=== PATIENT | female | born 1985 | race Caucasian/White ===

== ENCOUNTER 2016-11-16 16:09 | Outpatient (CLI) | payer MEDICAID ==
[2016-11-16 16:58] LABS: APPEARANCE,URINE CLEAR; BILIRUBIN,URINE NEGATIVE (NEGATIVE); GLUCOSE, URINE NEGATIVE (NEGATIVE); KETONES,URINE NEGATIVE (NEGATIVE); LEUKOCYTE ESTERASE,URINE NEGATIVE (NEGATIVE); NITRITE,URINE NEGATIVE (NEGATIVE); PROTEIN,URINE NEGATIVE (NEGATIVE); URINE SPECIFIC GRAVITY 1.004; UROBILINOGEN,URINE NEGATIVE mg/dL (<2.0)
[2016-11-16 17:00] LABS: AMNISURE (ROM) NEGATIVE (NEGATIVE)
[2016-11-16 17:14] LABS: URINE BARBITURATES SCREEN NEGATIVE; URINE METHADONE SCREEN NEGATIVE; URINE OPIATES LOW NEGATIVE; URINE PHENCYCLIDINE SCREEN NEGATIVE
--- NOTE | 2016-11-16 18:00 | L&D Flow Sheet ---
LD Flowsheet Datetime Report Generated by CPN: 11/16/2016 18:00 Datetime: 11/16/2016 17:52 Vital Signs NBP Sys/Andree/Mean (mmHg): 102 (QS system process) : 64 (QS system process) : 76 (QS system process) Pulse: 82 (QS system process) LaborFlag: Antepartum (QS system process) Datetime: 11/16/2016 17:30 Uterine Activity Monitor Mode: External; Palpation (Brooklyn Baidy, RN) Frequency (min): irritability (Brooklyn Baidy, RN) Assessment A Monitor Mode: External US (Brooklyn Baidy, RN) FHR Baseline Rate : 135 (Brooklyn Baidy, RN) Variability: Moderate 6-25 bpm (Brooklyn Baidy, RN) Accelerations: 15X15 (Brooklyn Baidy, RN) Decelerations: None (Brooklyn Baidy, RN) Datetime: 11/16/2016 17:22 Vital Signs NBP Sys/Andree/Mean (mmHg): 126 (QS system process) : 83 (QS system process) : 100 (QS system process) Pulse: 80 (QS system process) LaborFlag: Antepartum (QS system process) Datetime: 11/16/2016 17:06 Communication Communication Comments: Dr Mckeon at bedside reviewing POC (Brooklyn Baidy, RN) Datetime: 11/16/2016 17:00 Uterine Activity Monitor Mode: External; Palpation (Brooklyn Baidy, RN) Frequency (min): irritability (Brooklyn Baidy, RN) Assessment A Monitor Mode: External US (Brooklyn Baidy, RN) FHR Baseline Rate : 135 (Brooklyn Baidy, RN) Variability: Moderate 6-25 bpm (Brooklyn Baidy, RN) Accelerations: 15X15 (Brooklyn Baidy, RN) Decelerations: None (Brooklyn Baidy, RN) Datetime: 11/16/2016 16:57 Frequency (min): irregular (Brooklyn Baidy, RN) Pain Pain Scale: 2 (Brooklyn Baidy, RN) Pain Presence: Intermittent (Brooklyn Baidy, RN) Pain Type: Cramping; Contraction (Brooklyn Baidy, RN) Pain Location: Abdomen (Brooklyn Baidy, RN) Pain Goal: 1 (Brooklyn Baidy, RN) Vaginal Exam Vaginal Bleeding: Small (Brooklyn Baidy, RN) Maternal Assessment Level of Consciousness: Fully Conscious (Brooklyn Baidy, RN) DTR's/Clonus: DTRs 2+; No Clonus (Brooklyn Baidy, RN) Headache: Denies (Brooklyn Baidy, RN) Breath Sounds, Left: Clear and Equal (Brooklyn Baidy, RN) Breath Sounds, Right: Clear and Equal (Boroklyn Baidy, RN) Nausea/Vomiting: Present (Brooklyn Baidy, RN) RUQ Epigastric Pain: Denies (Brooklyn Baidy, RN) Patient Care Patient Position/Activity: Semi-Fowlers (Brooklyn Baidy, RN) Teaching Instructional Method: Verbal; Patient Instructed; Verbalized Understanding (Brooklyn Salinas RN) Plan of Care: Plan of Care Discussed (Brooklny Salinas RN) Unit Routine: [place] to Room; Call Maurice; Bed; Monitoring (LAUREN Fraga LaborFlag: Antepartum (QS system process) Datetime: 11/16/2016 16:53 Maternal Assessment Level of Consciousness: Fully Conscious (Brooklyn Salinas RN) DTR's/Clonus: DTRs 2+; No Clonus (Brooklyn Salinas RN) Headache: Denies (Brooklyn Salinas RN) Breath Sounds, Left: Clear and Equal (Brooklyn Baidy, RN) Breath Sounds, Right: Clear and Equal (Brooklyn Salinas, RN) Nausea/Vomiting: Denies (Brooklyn Salinas, RN) RUQ Epigastric Pain: Denies (Brooklyn Rita, RN) Datetime: 11/16/2016 16:52 Vital Signs NBP Sys/Andree/Mean (mmHg): 107 (QS system process) : 59 (QS system process) : 76 (QS system process) Pulse: 93 (QS system process) LaborFlag: Antepartum (QS system process) Datetime: 11/16/2016 16:46 I/O Interventions: Up to BR (Brooklyn Salinas RN)
[2016-11-16] MEDS ORDERED: PROMETHAZINE HCL INJ 25 MG/1 ML VIAL ONE (18:01)
[2016-11-16] MEDS ORDERED: PROMETHAZINE HCL INJ 25 MG/1 ML VIAL IV ONE (18:06)
[2016-11-16] MEDS ORDERED: RINGERS SOLUTION,LACTATED 1,000 ML IV PRN (18:16)
[2016-11-16 18:53] LABS: ABSOLUTE EOSINOPHILS # (AUTO) 0.1 10^3/uL (0.0-0.6); ABSOLUTE LYMPHOCYTES (AUTO) 2.9 10^3/uL (0.5-4.7); ABSOLUTE MONOCYTES (AUTO) 1.1 10^3/uL (0.1-1.4); ABSOLUTE NEUT (AUTO) 10.1 10^3/uL (1.7-8.2); BASOPHILS % (AUTO) 0.2 % (0-2); EOSINOPHILS % (AUTO) 0.5 % (0-6); HEMATOCRIT 35.4 % (36.0-47.0); HEMOGLOBIN 11.8 g/dL (12.0-15.5); LYMPHOCYTES % (AUTO) 20.2 % (13-45); MEAN CORPUSCULAR HEMOGLOBIN 29.8 pg (27.0-33.4); MEAN CORPUSCULAR HGB CONC 33.4 g/dL (32.0-36.0); MEAN CORPUSCULAR VOLUME 89 fl (80-97); MONOCYTES % (AUTO) 7.7 % (3-13); RED BLOOD COUNT 3.97 10^6/uL (3.72-5.28); RED CELL DISTRIBUTION WIDTH 14.9 % (11.5-14.0); SEGMENTED NEUTROPHILS % (AUTO) 71.4 % (42-78); WHITE BLOOD COUNT 14.2 10^3/uL (4.0-10.5)
[2016-11-16 19:11] LABS: ALANINE AMINOTRANSFERASE 31 U/L (9-52); ALKALINE PHOSPHATASE 90 U/L (38-126); ANION GAP 13 (5-19); ASPARTATE AMINO TRANSFERASE 23 U/L (14-36); BILIRUBIN,TOTAL 0.9 mg/dL (0.2-1.3); BLOOD UREA NITROGEN 8 mg/dL (7-20); CALCIUM 10.2 mg/dL (8.4-10.2); CARBON DIOXIDE 25 mmol/L (22-30); CHLORIDE 100 mmol/L (98-107); CREATININE RESULT 0.61 mg/dL (0.52-1.25); GLUCOSE 86 mg/dL (75-110); POTASSIUM 4.3 mmol/L (3.6-5.0); TOTAL PROTEIN 7.3 g/dL (6.3-8.2)
[2016-11-16 19:38] LABS: THYROID STIMULATING HORMONE 1.79 uIU/mL (0.47-4.68)
--- NOTE | 2016-11-16 20:00 | L&D Flow Sheet ---
LD Flowsheet Datetime Report Generated by CPN: 11/16/2016 20:00 Datetime: 11/16/2016 19:52 NBP Sys/Andree/Mean (mmHg): 113 (QS system process) : 71 (QS system process) : 87 (QS system process) Pulse: 86 (QS system process) LaborFlag: Antepartum (QS system process) Datetime: 11/16/2016 19:47 Procedures: Bedside Ultrasound Done (Annotations: vertex, MVP at least 2.5cm) (Jeana Kossmann, RN) Datetime: 11/16/2016 19:45 Communication Comments: Dr. Mckeon at bedside discussing POC. Discussed plans to check sugars and thryoid again in the office. Thyroid level is slighty lower. at bedside doing ultrasound. (Jeana Grey, RN) Datetime: 11/16/2016 19:38 I/O Interventions: Up to BR (Jeana Grey, SARAH) Communication Comments: Dr. Mckeon at bedside and discussed POC. (Jeana Matutebrandon, RN) Datetime: 11/16/2016 19:22 NBP Sys/Andree/Mean (mmHg): 104 (QS system process) : 66 (QS system process) : 81 (QS system process) Pulse: 102 (QS system process) LaborFlag: Antepartum (QS system process) Datetime: 11/16/2016 19:21 Communication Comments: Report given to Tonja Page RN, care relinquished. (Brooklyn Salinas RN) Datetime: 11/16/2016 19:00 Monitor Mode: External; Palpation (Brooklyn Salinas RN) Frequency (min): 1.5-4 (Brooklyn Salinas RN) Quality: Mild (Brooklyn Salinas RN) Duration (sec): 40-80 (Brooklyn Salinas RN) Duration Criteria: Less than Two 120 Second Contractions (Brooklyn Salinas RN) Pattern: Normal: <= 5 Contractions in 10 Minutes (Brooklyn Salinas RN) Resting Tone (Palpate): Relaxed (Brooklyn Salinas RN) Monitor Mode: External US (Brooklyn Baidy, RN) FHR Baseline Rate : 135 (Brooklyn Salinas, RN) Variability: Moderate 6-25 bpm (Brooklyn Salinas, RN) Accelerations: 15X15 (Brooklyn Salinas, RN) Decelerations: None (Brooklyn Salinas, SARAH) Analgesics/Sedatives: Phenergan (mg) @ 12.5 (Brooklyn Salinas, RN) Datetime: 11/16/2016 18:58 Monitor Interventions for UA: [place] Adjusted (Brooklyn Salinas, SARAH) Datetime: 11/16/2016 18:51 IV/Blood Work: IV Started; IV Bolus Started (Brooklyn Salinas, SARAH) Patient Care Comments: 18g in left arm, stat lock applied (Brooklyn Salinas, RN) Datetime: 11/16/2016 18:37 Exam by: Dr Mckeon (Brooklyn Salinas RN) Vaginal Exam Comments: closed thick and high (Brooklyn Salinas, RN) Datetime: 11/16/2016 18:36 Communication Comments: Dr Mckeon at bedside to perform SVE. (Brooklyn Salinas, SARAH) Datetime: 11/16/2016 18:30 Monitor Mode: External; Palpation (Brooklyn Salinas RN) Frequency (min): 1.5-3 (Brooklyn Salinas RN) Quality: Mild (Brooklyn Salinas RN) Duration (sec): 40-60 (Brooklyn Salinas RN) Duration Criteria: Less than Two 120 Second Contractions (Brooklyn Salinas RN) Pattern: Normal: <= 5 Contractions in 10 Minutes (Brooklyn Salinas RN) Resting Tone (Palpate): Relaxed (Brooklyn Salinas RN) Monitor Mode: External US (Brooklyn Salinas RN) FHR Baseline Rate : 135 (Brooklyn Salinas RN) Variability: Moderate 6-25 bpm (Brooklyn Salinas RN) Accelerations: 15X15 (Brooklyn Salinas RN) Decelerations: None (Brooklyn Salinas RN) Strip Reviewed by: Dr Mckeon (Brooklyn Salinas RN) Communication: RN Reviewed Strip (Brooklyn Salinas RN) Communication Comments: Dr Mckeon notified of pt ctx (Brooklyn Salinas RN) Datetime: 11/16/2016 18:11 Patient Care Comments: pt sitting straight up in bed picking up mht. (Brooklyn Salinas RN) Datetime: 11/16/2016 18:03 Patient Care Comments: Dr Mckeon notified of pt request for something for nausea. Orders received for LR 1 liter bolus and 12.5mg phenergan IV. (Brooklyn Salinas RN) Datetime: 11/16/2016 18:00 Monitor Mode: External; Palpation (Brooklyn Salinas RN) Frequency (min): 1.5-4 (Brooklyn Salinas RN) Quality: Mild (Brooklyn Salinas RN) Duration (sec): 40-90 (Brooklyn Salinas RN) Duration Criteria: Less than Two 120 Second Contractions (Brooklyn Salinas RN) Pattern: Normal: <= 5 Contractions in 10 Minutes (Brooklyn Salinas RN) Resting Tone (Palpate): Relaxed (Brooklyn Salinas RN) Monitor Mode: External US (Brooklyn Salinas RN) FHR Baseline Rate : 135 (Brooklyn Salinas RN) Variability: Moderate 6-25 bpm (Brooklyn Salinas RN) Accelerations: 15X15 (Brooklyn Salinas, SARAH) Decelerations: None (Brooklyn Salinas RN)
--- NOTE | 2016-11-17 04:46 | L&D Current Admission ---
Current Admit Datetime Report Generated by CPN: 11/17/2016 04:45 ADMISSION INFORMATION Chief Complaint: Contractions; Suspected Rupture of Membranes; Nausea; Vomiting (11/16/2016 16:57:Brooklyn Salinas RN)
--- NOTE | 2016-11-17 04:46 | L&D Flow Sheet ---
LD Flowsheet Datetime Report Generated by CPN: 11/17/2016 04:45 Datetime: 11/16/2016 20:40 Additional Nursing Comments: Patient discharged in stable condition. (Jeana Giovanibrandon, RN) Datetime: 11/16/2016 20:37 Patient Care Comments: IV access removed, tip intact, pressure held, bandage applied. (Jeana Elizabethann, RN) Datetime: 11/16/2016 20:30 Monitor Mode: External; Palpation (Jeana Grey RN) Frequency (min): uterine irritability (Jeana Grey RN) Resting Tone (Palpate): Relaxed (Jeana Grey RN) Monitor Mode: External US (Jeana Grey RN) FHR Baseline Rate : 135 (Jeana Grey RN) Variability: Minimal - Undetectable to <=5 bpm (Jeana Grey RN) Decelerations: None (Jeana Grey RN) Communication Comments: Orders received to discharge home from Dr. Mckeon. (Jeana Grey RN) Datetime: 11/16/2016 20:22 NBP Sys/Andree/Mean (mmHg): 99 (QS system process) : 59 (QS system process) : 74 (QS system process) Pulse: 77 (QS system process) Respirations: 18 (Jeana Grey RN) Pain Scale: 0 (Jeana Grey RN) Pain Presence: None/Denies (Jeana Grey RN) Pain Type: N/A (Jeana Grey RN) LaborFlag: Antepartum (QS system process) Datetime: 11/16/2016 20:01 Monitor Mode: External; Palpation (Jeana Grey RN) Frequency (min): rare with uterine irritability (Jeana Grey RN) Quality: Mild (Jeana Grey RN) Duration (sec): 30-50 (Jeana Grey RN) Resting Tone (Palpate): Relaxed (Jeana Grey RN) Monitor Mode: External US (Jeana Grey RN) FHR Baseline Rate : 140 (Jeana Grey RN) Variability: Minimal - Undetectable to <=5 bpm (Jeana Grey RN) Decelerations: None (Jeana Grey RN) Datetime: 11/16/2016 19:52 NBP Sys/Andree/Mean (mmHg): 113 (QS system process) : 71 (QS system process) : 87 (QS system process) Pulse: 86 (QS system process) LaborFlag: Antepartum (QS system process) Datetime: 11/16/2016 19:47 Procedures: Bedside Ultrasound Done (Annotations: vertex, MVP at least 2.5cm) (Jeana Matutebrandon, RN) Datetime: 11/16/2016 19:45 Communication Comments: Dr. Mckeon at bedside discussing POC. Discussed plans to check sugars and thryoid again in the office. Thyroid level is slighty lower. at bedside doing ultrasound. (Jeana Matilda, RN) Datetime: 11/16/2016 19:38 I/O Interventions: Up to BR (Jeana Grey RN) Communication Comments: Dr. Mckeon at bedside and discussed POC. (Jeana Grey RN) Datetime: 11/16/2016 19:30 Monitor Mode: External; Palpation (Jeana Grey RN) Frequency (min): uterine irritability (Jeana Grey RN) Resting Tone (Palpate): Relaxed (Jeana Grey RN) Monitor Mode: External US (Jeana Grey RN) FHR Baseline Rate : 140 (Jeana Grey RN) Variability: Moderate 6-25 bpm (Jeana Grey RN) Accelerations: 15X15 (Jeana Grey RN) Decelerations: None (Jeana Grey RN) Datetime: 11/16/2016 19:22 NBP Sys/Andree/Mean (mmHg): 104 (QS system process) : 66 (QS system process) : 81 (QS system process) Pulse: 102 (QS system process) LaborFlag: Antepartum (QS system process) Datetime: 11/16/2016 19:21 Communication Comments: Report given to J Kaylee RN, care relinquished. (Brooklyn Baidy, RN) Datetime: 11/16/2016 19:10 Communication Comments: Report from RN Baidy, care assummed. (Jeana Giovanismann, RN) Datetime: 11/16/2016 19:00 Monitor Mode: External; Palpation (Brooklyn Salinas, RN) Frequency (min): 1.5-4 (Brooklyn Salinas, RN) Quality: Mild (Brooklyn Rita, RN) Duration (sec): 40-80 (Brooklyn Salinas RN) Duration Criteria: Less than Two 120 Second Contractions (Brooklyn Salinas RN) Pattern: Normal: <= 5 Contractions in 10 Minutes (Brooklyn Salinas RN) Resting Tone (Palpate): Relaxed (Brooklyn Salinas RN) Monitor Mode: External US (Brooklyn Salinas RN) FHR Baseline Rate : 135 (Brooklyn Salinas RN) Variability: Moderate 6-25 bpm (Brooklyn Salinas RN) Accelerations: 15X15 (Brooklyn Salinas RN) Decelerations: None (Brooklyn Salinas RN) Analgesics/Sedatives: Phenergan (mg) @ 12.5 (Brooklyn Salinas RN) Datetime: 11/16/2016 18:58 Monitor Interventions for UA: [place] Adjusted (Brooklyn Salinas RN) Datetime: 11/16/2016 18:51 IV/Blood Work: IV Started; IV Bolus Started (Brooklyn Salinas RN) Patient Care Comments: 18g in left arm, stat lock applied (Brooklyn Baidy, RN) Datetime: 11/16/2016 18:37 Exam by: Dr Mckeon (Brooklyn Baidy, RN) Vaginal Exam Comments: closed thick and high (Brooklyn Baidy, RN) Datetime: 11/16/2016 18:36 Communication Comments: Dr Mckeon at bedside to perform SVE. (Brooklyn Baidy, RN) Datetime: 11/16/2016 18:30 Monitor Mode: External; Palpation (Brooklyn Baidy, RN) Frequency (min): 1.5-3 (Brooklyn Salinas RN) Quality: Mild (Brooklyn Salinas RN) Duration (sec): 40-60 (Brooklyn Salinas RN) Duration Criteria: Less than Two 120 Second Contractions (Brooklyn Salinas RN) Pattern: Normal: <= 5 Contractions in 10 Minutes (Brooklyn Salinas RN) Resting Tone (Palpate): Relaxed (Brooklyn Salinas RN) Monitor Mode: External US (Brooklyn Salinas RN) FHR Baseline Rate : 135 (Brooklyn Salinas RN) Variability: Moderate 6-25 bpm (Brooklyn Salinas RN) Accelerations: 15X15 (Brooklyn Salinas RN) Decelerations: None (Brooklyn Salinas RN) Strip Reviewed by: Dr Mckeon (Brooklyn Salinas RN) Communication: RN Reviewed Strip (Brooklyn Salinas RN) Communication Comments: Dr Mckeon notified of pt ctx (Brooklyn Salinas RN) Datetime: 11/16/2016 18:11 Patient Care Comments: pt sitting straight up in bed picking up mht. (Brooklyn Salinas RN) Datetime: 11/16/2016 18:03 Patient Care Comments: Dr Mckeon notified of pt request for something for nausea. Orders received for LR 1 liter bolus and 12.5mg phenergan IV. (Brooklyn Salinas RN) Datetime: 11/16/2016 18:00 Monitor Mode: External; Palpation (Brooklyn Salinas, RN) Frequency (min): 1.5-4 (Brooklyn Salinas, RN) Quality: Mild (Brooklyn Salinas, RN) Duration (sec): 40-90 (Brooklyn Salinas, RN) Duration Criteria: Less than Two 120 Second Contractions (Brooklyn Salinas, RN) Pattern: Normal: <= 5 Contractions in 10 Minutes (Brooklyn Salinas, RN) Resting Tone (Palpate): Relaxed (Brooklyn Salinas, RN) Monitor Mode: External US (Brooklyn Salinas, RN) FHR Baseline Rate : 135 (Brooklyn Salinas, RN) Variability: Moderate 6-25 bpm (Brooklyn Salinas, RN) Accelerations: 15X15 (Brooklyn Salinas, RN) Decelerations: None (Brooklyn Salinas, RN) Datetime: 11/16/2016 17:52 NBP Sys/Andree/Mean (mmHg): 102 (QS system process) : 64 (QS system process) : 76 (QS system process) Pulse: 82 (QS system process) LaborFlag: Antepartum (QS system process) Datetime: 11/16/2016 17:30 Monitor Mode: External; Palpation (Brooklyn Baidy, RN) Frequency (min): irritability (Brooklyn Baidy, RN) Monitor Mode: External US (Brooklyn Baidy, RN) FHR Baseline Rate : 135 (Brooklyn Baidy, RN) Variability: Moderate 6-25 bpm (Brooklyn Baidy, RN) Accelerations: 15X15 (Brooklyn Baidy, RN) Decelerations: None (Brooklyn Baidy, RN) Datetime: 11/16/2016 17:22 NBP Sys/Andree/Mean (mmHg): 126 (QS system process) : 83 (QS system process) : 100 (QS system process) Pulse: 80 (QS system process) LaborFlag: Antepartum (QS system process) Datetime: 11/16/2016 17:06 Communication Comments: Dr Mckeon at bedside reviewing POC (Brooklyn Baidy, RN) Datetime: 11/16/2016 17:00 Monitor Mode: External; Palpation (Brooklyn Baidy, RN) Frequency (min): irritability (Brooklyn Baidy, RN) Monitor Mode: External US (Brooklyn Baidy, RN) FHR Baseline Rate : 135 (Brooklyn Baidy, RN) Variability: Moderate 6-25 bpm (Brooklyn Baidy, RN) Accelerations: 15X15 (Brooklyn Baidy, RN) Decelerations: None (Brooklyn Baidy, RN) Datetime: 11/16/2016 16:57 Frequency (min): irregular (Brooklyn Salinas RN) Pain Scale: 2 (Brooklyn Salinas RN) Pain Presence: Intermittent (Brooklyn Salinas RN) Pain Type: Cramping; Contraction (Brooklyn Salinas RN) Pain Location: Abdomen (Brooklyn Salinas RN) Pain Goal: 1 (Brooklyn Salinas RN) Vaginal Bleeding: Small (Brooklyn Salinas RN) Level of Consciousness: Fully Conscious (Brooklyn Salinas RN) DTR's/Clonus: DTRs 2+; No Clonus (Brooklyn Salinas RN) Headache: Denies (Brooklyn Salinas RN) Breath Sounds, Left: Clear and Equal (Brooklyn Salinas RN) Breath Sounds, Right: Clear and Equal (Brooklyn Salinas RN) Nausea/Vomiting: Present (Brooklyn Salinas RN) RUQ Epigastric Pain: Denies (Brooklyn Salinas RN) Patient Position/Activity: Semi-Fowlers (Brooklyn Salinas RN) Instructional Method: Verbal; Patient Instructed; Verbalized Understanding (Brooklyn Salinas RN) Plan of Care: Plan of Care Discussed (Brooklyn Salinas RN) Unit Routine: [place] to Room; Call Maurice; Bed; Monitoring (Brooklyn Salinas RN) LaborFlag: Antepartum (QS system process) Datetime: 11/16/2016 16:53 Level of Consciousness: Fully Conscious (Brooklyn Salinas RN) DTR's/Clonus: DTRs 2+; No Clonus (Brooklyn Salinas RN) Headache: Denies (Brooklyn Salinas RN) Breath Sounds, Left: Clear and Equal (Brooklyn Salinas RN) Breath Sounds, Right: Clear and Equal (Brooklyn Salinas RN) Nausea/Vomiting: Denies (Brooklyn Salinas RN) RUQ Epigastric Pain: Denies (Brooklyn Salinas RN) Datetime: 11/16/2016 16:52 NBP Sys/Andree/Mean (mmHg): 107 (QS system process) : 59 (QS system process) : 76 (QS system process) Pulse: 93 (QS system process) LaborFlag: Antepartum (QS system process) Datetime: 11/16/2016 16:46 I/O Interventions: Up to BR (Brooklyn Salinas RN)
--- NOTE | 2016-11-17 04:46 | Antepartum Discharge Summary ---
Antepartum DC Datetime Report Generated by CPN: 11/17/2016 04:45 DIET/ACTIVITY/RESTRICTIONS Diet: Regular (11/16/2016 20:40:Jeana Grey, SARAH) Activity: Normal Activity (11/16/2016 20:40:Jeana Grey, RN) TEACHING/INSTRUCTIONS/REFERRALS Instructions Given To: patient and (11/16/2016 20:40:Jeana Grey RN) Instructions Understood: Patient Verbalized Understanding; Support Person Verbalized Understanding (11/16/2016 20:40:Jeana Grey RN) Referrals: None (11/16/2016 20:40:Jeana Grey RN) Educational Materials- Other: Kick counts, early labor signs, gasteroenteritis, BRAT diet reviewed. Dehydration paperwork provided. (11/16/2016 20:40:Jeana Grey RN) DISCHARGE INFORMATION Discharged AMA: No (11/16/2016 20:40:Jeana Grey RN) Discharge Date/Time: 11/16/2016 20:40 (11/16/2016 20:40:Jeana Grey RN) Discharged To: Home (11/16/2016 20:40:Jeana Grey RN) Discharge Provider Name: Dr. Mckeon (11/16/2016 20:40:Jeana Grey RN) Accompanied By: (11/16/2016 20:40:Jeana Grey RN) Discharge Method: Wheelchair (11/16/2016 20:40:Jeana Grey RN) Condition: Stable (11/16/2016 20:40:Jeana Grey RN) FOLLOW UP INFORMATION Follow Up With: [facility] (11/16/2016 20:40:Jeana Grey RN) Follow Up On: As Scheduled (11/16/2016 20:40:Jeana Grey RN) Comments: Prescription provided to patient for Phenergan. Patient to followup in office. (11/16/2016 20:40:Jeana Grey RN)
--- NOTE | 2016-11-17 04:46 | L&D Admission Assessment ---
LD ADM ASMT Datetime Report Generated by CPN: 11/17/2016 04:45 PATIENT ASSESSMENT Assessment Type: Triage (11/16/2016 16:57:Brooklyn Baidy, RN) Assessment Type: Triage (11/16/2016 16:53:Brooklyn Baidy, RN) WEIGHT Weight (lb): 180 (11/17/2016 01:53:QS system process) Weight (lb): 180 (11/16/2016 18:27:QS system process) Weight (lb): 180 (11/16/2016 17:31:QS system process) Weight (lb): 180 (11/16/2016 17:29:QS system process) Weight (lb): 180 (11/16/2016 17:28:QS system process) Weight (lb): 180 (11/16/2016 16:34:QS system process) Weight (kg): 81.8 (11/17/2016 01:53:QS system process) Weight (kg): 81.8 (11/16/2016 18:27:QS system process) Weight (kg): 81.8 (11/16/2016 17:31:QS system process) Weight (kg): 81.8 (11/16/2016 17:29:QS system process) Weight (kg): 81.8 (11/16/2016 17:28:QS system process) Weight (kg): 81.8 (11/16/2016 16:34:QS system process) BMI: 32.9 (11/17/2016 01:53:QS system process) BMI: 32.9 (11/16/2016 18:27:QS system process) BMI: 32.9 (11/16/2016 17:31:QS system process) BMI: 32.9 (11/16/2016 17:29:QS system process) BMI: 32.9 (11/16/2016 17:28:QS system process) BMI: 32.9 (11/16/2016 16:34:QS system process) PAIN Pain Scale: 0 (11/16/2016 20:22:Jeana Grey RN) Pain Scale: 2 (11/16/2016 16:57:Brooklyn Salinas RN) Pain Presence: None/Denies (11/16/2016 20:22:Jeana Grey RN) Pain Presence: Intermittent (11/16/2016 16:57:Brooklyn Salinas RN) Pain Type: N/A (11/16/2016 20:22:Jeana Grey RN) Pain Type: Cramping; Contraction (11/16/2016 16:57:Brooklyn Salinas RN) Pain Location: Abdomen (11/16/2016 16:57:Brooklyn Salinas RN) Pain Goal: 1 (11/16/2016 16:57:Brooklyn Salinas RN) Pain Related to Contraction: Unsure (11/16/2016 16:57:Brooklyn Salinas RN) CONTRACTIONS Frequency (min): uterine irritability (11/16/2016 20:30:Jeana Grey RN) Frequency (min): rare with uterine irritability (11/16/2016 20:01:Jeana Grey RN) Frequency (min): uterine irritability (11/16/2016 19:30:Jeana Grey RN) Frequency (min): 1.5-4 (11/16/2016 19:00:Brooklyn Salinas RN) Frequency (min): 1.5-3 (11/16/2016 18:30:Brooklyn Salinas RN) Frequency (min): 1.5-4 (11/16/2016 18:00:Brooklyn Salinas RN) Frequency (min): irritability (11/16/2016 17:30:Brooklyn Salinas RN) Frequency (min): irritability (11/16/2016 17:00:Brooklyn Salinas RN) Frequency (min): irregular (11/16/2016 16:57:Brooklyn Salinas RN) Duration (sec): 30-50 (11/16/2016 20:01:Jeana Grey RN) Duration (sec): 40-80 (11/16/2016 19:00:Brooklyn Salinas RN) Duration (sec): 40-60 (11/16/2016 18:30:Brooklyn Salinas RN) Duration (sec): 40-90 (11/16/2016 18:00:Brooklyn Salinas RN) Quality: Mild (11/16/2016 20:01:Jeana Grey RN) Quality: Mild (11/16/2016 19:00:Brooklyn Salinas RN) Quality: Mild (11/16/2016 18:30:Brooklyn Salinas RN) Quality: Mild (11/16/2016 18:00:Brooklyn Salinas RN) Pattern: Normal: <= 5 Contractions in 10 Minutes (11/16/2016 19:00:Brooklyn Salinas RN) Pattern: Normal: <= 5 Contractions in 10 Minutes (11/16/2016 18:30:Brooklyn Salinas RN) Pattern: Normal: <= 5 Contractions in 10 Minutes (11/16/2016 18:00:Brooklyn Salinas RN) Resting Tone Kismet: Relaxed (11/16/2016 20:30:Jeana Grey RN) Resting Tone [place]ism[place]: Relaxed (11/16/2016 20:01:Jeana Grey RN) Resting Tone [place]ism[place]: Relaxed (11/16/2016 19:30:Jeaan Grey RN) Resting Tone Kismet: Relaxed (11/16/2016 19:00:Brooklyn Salinas RN) Resting Tone Kismet: Relaxed (11/16/2016 18:30:Brooklyn Salinas RN) Resting Tone Kismet: Relaxed (11/16/2016 18:00:Brooklyn Salinas RN) NEURO Level of Consciousness: Fully Conscious (11/16/2016 16:57:Brooklyn Salinas RN) Level of Consciousness: Fully Conscious (11/16/2016 16:53:Brooklyn Salinas RN) DTR's/Clonus: DTRs 2+; No Clonus (11/16/2016 16:57:Brooklyn Salinas RN) DTR's/Clonus: DTRs 2+; No Clonus (11/16/2016 16:53:Brooklyn Salinas RN) Headache: Denies (11/16/2016 16:57:Brooklyn Salinas RN) Headache: Denies (11/16/2016 16:53:Brooklyn Salinas RN) Dizziness: Yes (11/16/2016 16:57:Brooklyn Salinas RN) Dizziness: No (11/16/2016 16:53:Brooklyn Salinas RN) Blurred Vision: No (11/16/2016 16:57:Brooklyn Salinas RN) Blurred Vision: No (11/16/2016 16:53:Brooklyn Salinas RN) Extremity Numbness/Tingling : None (11/16/2016 16:57:Brooklyn Salinas RN) Extremity Numbness/Tingling : None (11/16/2016 16:53:Brooklyn Salinas RN) Extremity Movement: Full Range of Motion (11/16/2016 16:57:Brooklyn Salinas RN) Extremity Movement: Full Range of Motion (11/16/2016 16:53:Brooklyn Salinas RN) CARDIOVASCULAR Nailbeds: [place] (11/16/2016 16:57:Brooklyn Salinas RN) Nailbeds: [place] (11/16/2016 16:53:Brooklyn Salinas RN) Capillary Refill: Less than 3 Seconds (11/16/2016 16:57:Brooklyn Salinas RN) Capillary Refill: Less than 3 Seconds (11/16/2016 16:53:Brooklyn Salinas RN) Facial Edema: None (11/16/2016 16:57:Brooklyn Salinas RN) Facial Edema: None (11/16/2016 16:53:Brooklyn Salinas RN) Xavi's Sign Left Leg: Negative (11/16/2016 16:57:Brooklyn Salinas RN) Xavi's Sign Left Leg: Negative (11/16/2016 16:53:Brooklyn Salinas RN) Xavi's Sign Right Leg: Negative (11/16/2016 16:57:Brooklyn Salinas RN) Xavi's Sign Right Leg: Negative (11/16/2016 16:53:Brooklyn Salinas RN) RESPIRATORY Respiratory Effort: Unlabored; Regular Rhythm; Equal Expansion (11/16/2016 16:57:Brooklyn Salinas RN) Respiratory Effort: Unlabored; Regular Rhythm; Equal Expansion (11/16/2016 16:53:Brooklyn Salinas RN) Breath Sounds, Left: Clear and Equal (11/16/2016 16:57:Brooklyn Salinas RN) Breath Sounds, Left: Clear and Equal (11/16/2016 16:53:Brooklyn Salinas RN) Breath Sounds, Right: Clear and Equal (11/16/2016 16:57:Brooklyn Salinas RN) Breath Sounds, Right: Clear and Equal (11/16/2016 16:53:Brooklyn Salinas RN) Cough Productivity: None (11/16/2016 16:57:Brooklyn Salinas RN) Cough Productivity: None (11/16/2016 16:53:Brooklyn Salinas RN) GASTROINTESTINAL Nausea/Vomiting: Present (11/16/2016 16:57:Brooklyn Salinas RN) Nausea/Vomiting: Denies (11/16/2016 16:53:Brooklyn Salinas RN) Bowel Sounds: Normoactive; All Quadrants (11/16/2016 16:57:Brooklyn Salinas RN) Bowel Sounds: Normoactive; All Quadrants (11/16/2016 16:53:Brooklyn Salinas RN) RUQ Epigastric Pain: Denies (11/16/2016 16:57:Brooklyn Salinas RN) RUQ Epigastric Pain: Denies (11/16/2016 16:53:Brooklyn Salinas RN) Bowel Patterns: Diarrhea (Annotations: x3 days) (11/16/2016 16:57:Brooklyn Salinas RN) Hemorrhoids: None (11/16/2016 16:57:Brooklyn Salinas RN) Diet Type: Regular diet (11/16/2016 16:57:Brooklyn Salinas RN) GENITOURINARY Bladder: Nondistended (11/16/2016 16:57:Brooklyn Salinas RN) Bladder: Nondistended (11/16/2016 16:53:Brooklyn Salinas RN) Frequency of Urination: No (11/16/2016 16:57:Brooklyn Salinas RN) Frequency of Urination: No (11/16/2016 16:53:Brooklyn Salinas RN) Urination Burning: No (11/16/2016 16:57:Brooklyn Salinas RN) Urination Burning: No (11/16/2016 16:53:Brooklyn Salinas RN) CVA Tenderness: No (11/16/2016 16:57:Brooklyn Salinas RN) CVA Tenderness: No (11/16/2016 16:53:Brooklyn Salinas RN) Vaginal Bleeding: None (11/16/2016 16:57:Brooklyn Salinas RN) Vaginal Bleeding: None (11/16/2016 16:53:Brooklyn Salinas RN) Vaginal Discharge Color: N/A (11/16/2016 16:57:Brooklyn Salinas RN) Vaginal Discharge Color: N/A (11/16/2016 16:53:Brooklyn Salinas RN) INTEGUMENTARY Skin Color: Normal for Race (11/16/2016 16:57:Brooklyn Salinas RN) Skin Color: Normal for Race (11/16/2016 16:53:Brooklyn Salinas RN) Skin Temperature: Warm (11/16/2016 16:57:Brooklyn Salinas RN) Skin Temperature: Warm (11/16/2016 16:53:Brooklyn Salinas RN) Skin Moisture: Dry (11/16/2016 16:57:Brooklyn Salinas RN) Skin Moisture: Dry (11/16/2016 16:53:Brooklyn Salinas RN) SONJA SKIN ASSESSMENT Sonja Scale Sensory Perception: No Impairment- Responds to verbal commands. Has no sensory deficit which would limit ability to feel or voice pain or discomfort (11/16/2016 16:57:Brooklyn Salinas RN) Sonja Scale Sensory Perception: No Impairment- Responds to verbal commands. Has no sensory deficit which would limit ability to feel or voice pain or discomfort (11/16/2016 16:53:Brooklyn Salinas RN) Sonja Scale Moisture: Rarely Moist- Skin is usually dry. Linen only requires changing at routine intervals (11/16/2016 16:57:Brooklyn Salinas RN) Sonja Scale Moisture: Rarely Moist- Skin is usually dry. Linen only requires changing at routine intervals (11/16/2016 16:53:Brooklyn Salinas RN) Sonja Scale Activity: Walks Frequently- Walks outside the room at least twice a day and inside room at least every 2 hours during the day. (11/16/2016 16:57:Brooklyn Salinas RN) Sonja Scale Activity: Walks Frequently- Walks outside the room at least twice a day and inside room at least every 2 hours during the day. (11/16/2016 16:53:Brooklyn Salinas RN) Sonja Scale Mobility: No Limitations- Makes major and frequent changes in position without assistance (11/16/2016 16:57:Brooklyn Salinas RN) Sonja Scale Mobility: No Limitations- Makes major and frequent changes in position without assistance (11/16/2016 16:53:Brooklyn Salinas RN) Sonja Scale Nutrition: Excellent- Eats most of every meal. Never refuses a meal. Usually eats a total of 4 or more servings of meat and dairy products. Occasionally eats between meals. Does not require supplementation (11/16/2016 16:57:Brooklyn Salinas RN) Sonja Scale Nutrition: Excellent- Eats most of every meal. Never refuses a meal. Usually eats a total of 4 or more servings of meat and dairy products. Occasionally eats between meals. Does not require supplementation (11/16/2016 16:53:Brooklyn Salinas RN) Sonja Scale Friction and Shear: No Apparent Problem- Moves in bed and in chair independently and has sufficient muscle strength to lift up completely during move. Maintains good position in bed or chair at all times (11/16/2016 16:57:Brooklyn Salinas RN) Sonja Scale Friction and Shear: No Apparent Problem- Moves in bed and in chair independently and has sufficient muscle strength to lift up completely during move. Maintains good position in bed or chair at all times (11/16/2016 16:53:Brooklyn Salinas RN) Sonja Scale Total: 23 (11/16/2016 16:57:QS system process) Sonja Scale Total: 23 (11/16/2016 16:53:QS system process) Sonja Scale Risk: No Risk of Pressure Ulcer Noted at this Time (11/16/2016 16:57:QS system process) Sonja Scale Risk: No Risk of Pressure Ulcer Noted at this Time (11/16/2016 16:53:QS system process) SUPPORT Family Support: Significant Other supportive, at bedside frequently (11/16/2016 16:57:Brooklyn Salinas, RN) Emotional State: Calm/Relaxed (11/16/2016 16:57:Brooklyn Baidy, RN) SAFETY Call Maurice Within Reach: Yes (11/16/2016 16:57:Brooklyn Salinas RN) Call Maurice Within Reach: Yes (11/16/2016 16:53:Brooklyn Salinas RN) Side Rails Up: Yes (11/16/2016 16:57:Brooklyn Salinas RN) Side Rails Up: Yes (11/16/2016 16:53:Brooklyn Salinas RN) Bed Wheels Locked: Yes (11/16/2016 16:57:Brooklyn Salinas RN) Bed Wheels Locked: Yes (11/16/2016 16:53:Brooklyn Salinas RN) Arm Bands Present: Yes (11/16/2016 16:57:Brooklyn Salinas RN) Arm Bands Present: Yes (11/16/2016 16:53:Brooklyn Salinas RN) FALL SCREEN Fall Risk History of Falling: (0) No (11/16/2016 16:57:Brooklyn Salinas RN) Fall Risk History of Falling: (0) No (11/16/2016 16:53:Brooklyn Salinas RN) Fall Risk Secondary Diagnosis: (0) No (11/16/2016 16:57:Brooklyn Salinas RN) Fall Risk Secondary Diagnosis: (0) No (11/16/2016 16:53:Brooklyn Salinas RN) Fall Risk Ambulatory Aid: (0) None/Bedrest/Wheelchair/Nurse Assist (11/16/2016 16:57:Brooklyn Salinas RN) Fall Risk Ambulatory Aid: (0) None/Bedrest/Wheelchair/Nurse Assist (11/16/2016 16:53:Brooklyn Salinas RN) Fall Risk IV Therapy: (0) No (11/16/2016 16:57:Brooklyn Salinas RN) Fall Risk IV Therapy: (0) No (11/16/2016 16:53:Brooklyn Salinas RN) Fall Risk Gait: (0) Normal/Bedrest/Immobile (11/16/2016 16:57:Brooklyn Salinas RN) Fall Risk Gait: (0) Normal/Bedrest/Immobile (11/16/2016 16:53:Brooklyn Salinas RN) Fall Risk Mental Status: (0) Oriented to Own Ability (11/16/2016 16:57:Brooklyn Salinas RN) Fall Risk Mental Status: (0) Oriented to Own Ability (11/16/2016 16:53:Brooklyn Salinas RN) Fall Risk Score: 0 (11/16/2016 16:57:QS system process) Fall Risk Score: 0 (11/16/2016 16:53:QS system process) Fall Risk Score Definition: No Risk: No action required (11/16/2016 16:57:QS system process) Fall Risk Score Definition: No Risk: No action required (11/16/2016 16:53:QS system process) BABY A FHR Baseline Rate (bpm) Baby A: 135 (11/16/2016 20:30:Jeana Grey RN) FHR Baseline Rate (bpm) Baby A: 140 (11/16/2016 20:01:Jeana Grey RN) FHR Baseline Rate (bpm) Baby A: 140 (11/16/2016 19:30:Jeana Grey RN) FHR Baseline Rate (bpm) Baby A: 135 (11/16/2016 19:00:Brooklyn Salinas RN) FHR Baseline Rate (bpm) Baby A: 135 (11/16/2016 18:30:Brooklyn Salinas RN) FHR Baseline Rate (bpm) Baby A: 135 (11/16/2016 18:00:Brooklyn Salinas RN) FHR Baseline Rate (bpm) Baby A: 135 (11/16/2016 17:30:Brooklyn Salinas RN) FHR Baseline Rate (bpm) Baby A: 135 (11/16/2016 17:00:Brooklyn Salinas RN) Variability Baby A: Minimal - Undetectable to <=5 bpm (11/16/2016 20:30:Jeana Grey RN) Variability Baby A: Minimal - Undetectable to <=5 bpm (11/16/2016 20:01:Jeana Grey RN) Variability Baby A: Moderate 6-25 bpm (11/16/2016 19:30:Jeana Grey RN) Variability Baby A: Moderate 6-25 bpm (11/16/2016 19:00:Brooklyn Salinas RN) Variability Baby A: Moderate 6-25 bpm (11/16/2016 18:30:Brooklyn Salinas RN) Variability Baby A: Moderate 6-25 bpm (11/16/2016 18:00:Brooklyn Salinas RN) Variability Baby A: Moderate 6-25 bpm (11/16/2016 17:30:Brooklyn Salinas RN) Variability Baby A: Moderate 6-25 bpm (11/16/2016 17:00:Brooklyn Salinas RN) Accelerations Baby A: 15X15 (11/16/2016 19:30:Jeana Grey RN) Accelerations Baby A: 15X15 (11/16/2016 19:00:Brooklyn Salinas RN) Accelerations Baby A: 15X15 (11/16/2016 18:30:Brooklyn Salinas RN) Accelerations Baby A: 15X15 (11/16/2016 18:00:Brooklyn Salinas RN) Accelerations Baby A: 15X15 (11/16/2016 17:30:Brooklyn Salinas RN) Accelerations Baby A: 15X15 (11/16/2016 17:00:Brooklyn Salinas RN) Decelerations Baby A: None (11/16/2016 20:30:Jeana Grey RN) Decelerations Baby A: None (11/16/2016 20:01:Jeana Grey RN) Decelerations Baby A: None (11/16/2016 19:30:Jeana Grey RN) Decelerations Baby A: None (11/16/2016 19:00:Brooklyn Salinas RN) Decelerations Baby A: None (11/16/2016 18:30:Brooklyn Salinas RN) Decelerations Baby A: None (11/16/2016 18:00:Brooklyn Salinas RN) Decelerations Baby A: None (11/16/2016 17:30:Brooklyn Salinas RN) Decelerations Baby A: None (11/16/2016 17:00:Brooklyn Salinas RN) ADDITIONAL COMMENTS Comments: Assessment completed, and in agreeance with previous shifts assessment. Patient states that she is feeling better. Continuing to receive IV hydration through LAC. VSS, NAD. Will continue to closely monitor while awaiting labs. (11/16/2016 19:30:Jeana Grey RN)
--- NOTE | 2016-11-17 04:46 | L&D General Admission ---
General Admit Datetime Report Generated by CPN: 11/17/2016 04:45 INFORMATION Baby, Number in Womb: 1 (11/16/2016 20:40:Jeana Grey, RN) CARE Height (in): 62 (11/17/2016 01:53:QS system process) Height (in): 62 (11/16/2016 18:27:QS system process) Height (in): 62 (11/16/2016 17:31:QS system process) Height (in): 62 (11/16/2016 17:29:QS system process) Height (in): 62 (11/16/2016 17:28:QS system process) Height (in): 62 (11/16/2016 16:34:QS system process) ALLERGIES Medication Allergies: No Known Allergies (11/17/2016) (11/17/2016 01:53:QS system process) LABS Hemoglobin: 11.8 L (11/16/2016 18:20:QS system process) Hematocrit: 35.4 L (11/16/2016 18:20:QS system process) MCV: 89 (11/16/2016 18:20:QS system process)
--- NOTE | 2016-11-17 04:46 | L&D Discharge Summary ---
OB Discharge Summary Datetime Report Generated by CPN: 11/17/2016 04:45 DISCHARGE DIAGNOSIS Diagnosis/Symptoms: False Labor; Gastroenteritis Diagnoses/Symptoms Other: diagnosis: false labor Treatment/Procedures Other: Received Phenergan Gestation: 36.1 Number of Babies in Womb: 1 Parity: 0 DIET/ACTIVITY/RESTRICTIONS Diet: Regular Activity: Normal Activity TEACHING/INSTRUCTIONS/REFERRALS Instructions Given To: patient and Instructions Understood: Patient Verbalized Understanding; Support Person Verbalized Understanding Referrals: None Educational Materials- Other: Kick counts, early labor signs, gasteroenteritis, BRAT diet reviewed. Dehydration paperwork provided. DISCHARGE INFORMATION Discharged AMA: No Discharge Date/Time: 11/16/2016 20:40 Discharged To: Home Discharge Provider Name: Dr. Mckeon Accompanied By: Discharge Method: Wheelchair Condition: Stable FOLLOW UP INFORMATION Follow Up With: [facility] Follow Up On: As Scheduled Comments: Prescription provided to patient for Phenergan. Patient to followup in office.
== END 2016-11-16 20:40 | disposition home or self-care (01) ==
LOC: LC 16:09
PROVIDERS: ATTEND Student in an Organized Health Care Education/Training Program
PROC: 4A1HXCZ Monitoring of Products of Conception, Cardiac Rate, External Approach (ICD-10-PCS; principal; 2016-11-16)
DX: O47.03 False labor before 37 completed weeks of gestation, third trimester (principal); O99.613 Diseases of the digestive system complicating pregnancy, third trimester; K52.9 Noninfective gastroenteritis and colitis, unspecified; Z3A.36 36 weeks gestation of pregnancy
CPT/HCPCS: 59025; 84112; 36415; 87086; 84439; 84443; 85025; 80053; 81001; 80307; J2550

== ENCOUNTER 2016-11-24 10:02 | Outpatient (CLI) | payer MEDICAID ==
--- NOTE | 2016-11-24 10:05 | Non Stress Test Report ---
Non Stress Test Datetime Report Generated by CPN: 11/24/2016 10:05 DEMOGRAPHIC Test Number: 2 EGA NST: 36.1 EGA NST: 36.1 INDICATION Indication for Study: Ordered by Provider Indication for Study: Ordered by Provider URINE RESULTS Urine Protein, NST: Negative Urine Ketones - NST: Negative Urine Glucose - NST: Negative Urine Blood - NST: Negative MONITORING Monitor Explained: Monitor Explained; Test Explained; Patient Verbalized Understanding Monitor Explained: Monitor Explained; Test Explained; Patient Verbalized Understanding Time on Monitor: 11/16/2016 16:32 Time on Monitor: 11/16/2016 16:45 Time off Monitor: 11/16/2016 20:37 NST Duration: 245 NST INTERVENTIONS NST Interventions: PO Hydration; IV Fluids NST Interventions: None Physician Notified NST: Dr. Mckeon Physician Notified NST: Dr Mckeon BABY A: [id number] BABY A Movement : Present Movement : Present Contraction Frequency : irregular with uterine irriability Contraction Frequency : irritability FHR Baseline : 140 FHR Baseline : 135 Accelerations : 15X15 Accelerations : 15X15 Decelerations : None Decelerations : None Variability : min to mod Variability : Moderate 6-25bpm Variability : Moderate 6-25bpm NST Review: Meets Criteria for Reactive NST NST Review: Meets Criteria for Reactive NST NST Review: Meets Criteria for Reactive NST NST Review and Verified By : Mau Morrow RN NST Review and Verified By : Adrianne Villafana RN NST Results: Reactive NST Results: Reactive NST REPORT Report Trigger: Send Report
[2016-11-24 11:04] LABS: APPEARANCE,URINE CLOUDY; BILIRUBIN,URINE NEGATIVE (NEGATIVE); GLUCOSE, URINE 150 mg/dL (NEGATIVE); KETONES,URINE NEGATIVE (NEGATIVE); LEUKOCYTE ESTERASE,URINE NEGATIVE (NEGATIVE); NITRITE,URINE NEGATIVE (NEGATIVE); PROTEIN,URINE NEGATIVE (NEGATIVE); URINE SPECIFIC GRAVITY 1.004; UROBILINOGEN,URINE NEGATIVE mg/dL (<2.0)
[2016-11-24 11:32] LABS: URINE BARBITURATES SCREEN NEGATIVE; URINE METHADONE SCREEN NEGATIVE; URINE OPIATES LOW NEGATIVE; URINE PHENCYCLIDINE SCREEN NEGATIVE
--- NOTE | 2016-11-24 12:00 | L&D Flow Sheet ---
LD Flowsheet Datetime Report Generated by CPN: 11/24/2016 12:00 Datetime: 11/24/2016 11:51 NBP Sys/Andree/Mean (mmHg): 101 (QS system process) : 69 (QS system process) : 81 (QS system process) Pulse: 109 (QS system process) LaborFlag: Antepartum (QS system process) Datetime: 11/24/2016 11:20 Pain Scale: 2 (ILANA Lakhani) Pain Presence: Intermittent (ILANA Lakhani) Pain Type: Cramping (ILANA Lakhani) Pain Location: Abdomen (ILANA Lakhani) Level of Consciousness: Fully Conscious (ILANA Lakhani) DTR's/Clonus: DTRs 2+; No Clonus (ILANA Lakhani) Headache: Denies (ILANA Lakhani) Breath Sounds, Left: Clear and Equal (ILANA Lakhani) Breath Sounds, Right: Clear and Equal (ILANA Lakhani) Nausea/Vomiting: Denies (ILANA Lakhani) RUQ Epigastric Pain: Denies (ILANA Lakhani) Instructional Method: Verbal (ILANA Lakhani) Plan of Care: Plan of Care Discussed; C/S Delivery; Labor (ILANA Lakhani) Unit Routine: [place] to Room; Call Maurice; Bed; Monitoring; Bathroom Privileges; Medications (ILANA Lakhani) LaborFlag: Antepartum (QS system process)
== END 2016-11-24 12:28 | disposition home or self-care (01) ==
LOC: LC 10:02
PROVIDERS: ATTEND Student in an Organized Health Care Education/Training Program
PROC: 4A1HXCZ Monitoring of Products of Conception, Cardiac Rate, External Approach (ICD-10-PCS; principal; 2016-11-24)
DX: O47.03 False labor before 37 completed weeks of gestation, third trimester (principal); Z3A.36 36 weeks gestation of pregnancy
CPT/HCPCS: 59025; 80307; 81005

== ENCOUNTER 2016-12-05 18:01 | Outpatient (CLI) | payer MEDICAID ==
[2016-12-05 18:51] LABS: APPEARANCE,URINE CLEAR; BILIRUBIN,URINE NEGATIVE (NEGATIVE); GLUCOSE, URINE NEGATIVE (NEGATIVE); KETONES,URINE NEGATIVE (NEGATIVE); LEUKOCYTE ESTERASE,URINE NEGATIVE (NEGATIVE); NITRITE,URINE NEGATIVE (NEGATIVE); PROTEIN,URINE NEGATIVE (NEGATIVE); URINE SPECIFIC GRAVITY 1.009; UROBILINOGEN,URINE NEGATIVE mg/dL (<2.0)
[2016-12-05 19:06] LABS: URINE BARBITURATES SCREEN NEGATIVE; URINE METHADONE SCREEN NEGATIVE; URINE OPIATES LOW NEGATIVE; URINE PHENCYCLIDINE SCREEN NEGATIVE
--- NOTE | 2016-12-05 19:59 | Non Stress Test Report ---
Non Stress Test Datetime Report Generated by CPN: 12/05/2016 19:59 DEMOGRAPHIC Test Number: 4 EGA NST: 38.6 EGA NST: 37.2 INDICATION Indication for Study: Other Indication for Study: Ordered by Provider Indication for Study (NST) Other: labor check MONITORING Monitor Explained: Monitor Explained; Test Explained; Patient Verbalized Understanding Monitor Explained: Monitor Explained; Test Explained; Patient Verbalized Understanding Time on Monitor: 12/05/2016 18:30 Time on Monitor: 11/24/2016 11:40 Time off Monitor: 12/05/2016 19:33 Time off Monitor: 11/24/2016 12:11 NST Duration: 63 NST Duration: 31 NST INTERVENTIONS NST Interventions: PO Hydration NST Interventions: PO Hydration Physician Notified NST: Dr Bowie Physician Notified NST: A Emmel CNM BABY A: [id number] BABY A Movement : Present Movement : Present Contraction Frequency : none Contraction Frequency : Irr FHR Baseline : 135 FHR Baseline : 135 Accelerations : 15X15 Accelerations : 15X15 Decelerations : None Decelerations : None Variability : Moderate 6-25bpm Variability : Moderate 6-25bpm NST Review: Meets Criteria for Reactive NST NST Review: Meets Criteria for Reactive NST NST Review and Verified By : Kemar Patel RN NST Results: Reactive NST Results: Reactive NST REPORT Report Trigger: Send Report
--- NOTE | 2016-12-05 20:01 | L&D Flow Sheet ---
LD Flowsheet Datetime Report Generated by CPN: 12/05/2016 20:00 Datetime: 12/05/2016 19:45 Patient Care Comments: Dr Jamir abrams of the patient 38.6 presented with nausea and vomiting and is on the csection schedule for thursday. The patient was able to keep ice chips and water down with no problems, and denies any nausea at this time. The baby is reactive on the monitor but is hard to trace with increased movement. Orders recieved to discharge the patient home and keep schedule for csection on thursday. (Chantel Whyte) Datetime: 12/05/2016 19:32 Patient Care Comments: the patient states she feels a little nauseous but has been able to keep ice chips and water down. (Chantel Whyte) Datetime: 12/05/2016 19:15 Respirations: 18 (Chantel Whyte) Uterine Activity Monitor Mode: External; Palpation (Chantel Whyte) Monitor Interventions for UA: [place] Adjusted (Chantel Whyte) Frequency (min): none (Chantel Whyte) Resting Tone (Palpate): Relaxed (Chantel Whyte) Assessment A Monitor Mode: External US (Chantel Whyte) Monitor Interventions for FHR: Ultrasound Adjusted (Chantel Whyte) FHR Baseline Rate : 135 (Chantel Whyte) Variability: Moderate 6-25 bpm (Chantel Whyte) Accelerations: 15X15 (Chantel Whyte) Decelerations: None (Chantel Whyte) Patient Care Patient Position/Activity: Left Tilt; High Fowlers (Chantel Whyte) Communication LaborFlag: Antepartum (QS system process) Datetime: 12/05/2016 18:43 Maternal Assessment Level of Consciousness: Fully Conscious (Zoe Oneil, [facility]) DTR's/Clonus: DTRs 2+; No Clonus (Zoe Oneil, [facility]) Headache: Denies (Zoe Oneil, [facility]) Breath Sounds, Left: Clear and Equal (Zoe Oneil, [facility]) Breath Sounds, Right: Clear and Equal (Zoe Oneil, [facility]) Nausea/Vomiting: Denies (Zoe Oneil, [facility]) RUQ Epigastric Pain: Denies (Zoe Oneil, [facility]) Teaching Instructional Method: Verbal (Zoe Oneil, [facility]) Plan of Care: Plan of Care Discussed (Zoe Oneil, [facility]) Unit Routine: [place] to Room; Call Maurice; Bed; Monitoring; Bathroom Privileges (Zoe Oneil, [facility]) Datetime: 12/05/2016 18:27 Vital Signs NBP Sys/Andree/Mean (mmHg): 102 (QS system process) : 66 (QS system process) : 79 (QS system process) Pulse: 83 (QS system process) Communication LaborFlag: Antepartum (QS system process) Datetime: 11/24/2016 12:00 Communication LaborFlag: Antepartum (QS system process) Datetime: 11/24/2016 11:51 Communication LaborFlag: Antepartum (QS system process) Datetime: 11/24/2016 11:20 Communication LaborFlag: Antepartum (QS system process) Datetime: 11/16/2016 20:22 Communication LaborFlag: Antepartum (QS system process) Datetime: 11/16/2016 19:52 Communication LaborFlag: Antepartum (QS system process) Datetime: 11/16/2016 19:22 Communication LaborFlag: Antepartum (QS system process) Datetime: 11/16/2016 17:52 Communication LaborFlag: Antepartum (QS system process) Datetime: 11/16/2016 17:22 Communication LaborFlag: Antepartum (QS system process) Datetime: 11/16/2016 16:57 Communication LaborFlag: Antepartum (QS system process) Datetime: 11/16/2016 16:52 Communication LaborFlag: Antepartum (QS system process) Datetime: 09/14/2016 00:30 Communication LaborFlag: Antepartum (QS system process) Datetime: 09/14/2016 00:28 Communication LaborFlag: Antepartum (QS system process) Datetime: 09/13/2016 23:58 Communication LaborFlag: Antepartum (QS system process) Datetime: 09/13/2016 23:28 Communication LaborFlag: Antepartum (QS system process) Datetime: 09/13/2016 22:28 Communication LaborFlag: Antepartum (QS system process) Datetime: 09/13/2016 21:58 Communication LaborFlag: Antepartum (QS system process) Datetime: 09/13/2016 21:28 Communication LaborFlag: Antepartum (QS system process) Datetime: 09/13/2016 20:58 Communication LaborFlag: Antepartum (QS system process) Datetime: 09/13/2016 19:57 Communication LaborFlag: Antepartum (QS system process) Datetime: 09/13/2016 19:45 Communication LaborFlag: Antepartum (QS system process) Datetime: 09/13/2016 19:44 Communication LaborFlag: Antepartum (QS system process) Datetime: 09/13/2016 19:43 Temperature (C): 36.9 (QS system process) Communication LaborFlag: Antepartum (QS system process) Datetime: 09/13/2016 19:20 Communication LaborFlag: Antepartum (QS system process)
--- NOTE | 2016-12-05 20:01 | L&D Flow Sheet ---
LD Flowsheet Datetime Report Generated by CPN: 12/05/2016 20:00 Datetime: 12/05/2016 19:55 Teaching Comments: Discharge instructions of labor signs and handout given to the patient. The patient verbalized understanding of the instructions and no further questions at this time. Patient discahrged home. (Chantel Whyte) Datetime: 12/05/2016 19:45 Patient Care Comments: Dr Jamir abrams of the patient 38.6 presented with nausea and vomiting and is on the csection schedule for thursday. The patient was able to keep ice chips and water down with no problems, and denies any nausea at this time. The baby is reactive on the monitor but is hard to trace with increased movement. Orders recieved to discharge the patient home and keep schedule for csection on thursday. (Chantel Whyte) Datetime: 12/05/2016 19:32 Patient Care Comments: the patient states she feels a little nauseous but has been able to keep ice chips and water down. (Chantel Whyte) Datetime: 12/05/2016 19:15 Respirations: 18 (Chantel Whyte) Uterine Activity Monitor Mode: External; Palpation (Chantel Whyte) Monitor Interventions for UA: [place] Adjusted (Chantel Whyte) Frequency (min): none (Chantel Whyte) Resting Tone (Palpate): Relaxed (Chantel Whyte) Assessment A Monitor Mode: External US (Chantel Whyte) Monitor Interventions for FHR: Ultrasound Adjusted (Chantel Whyte) FHR Baseline Rate : 135 (Chantel Whyte) Variability: Moderate 6-25 bpm (Chantel Whyte) Accelerations: 15X15 (Chantel Whyte) Decelerations: None (Chantel Whyte) Patient Care Patient Position/Activity: Left Tilt; High Fowlers (Chantel Whyte) Communication LaborFlag: Antepartum (QS system process) Datetime: 12/05/2016 18:43 Maternal Assessment Level of Consciousness: Fully Conscious (Zoe Oneil, [facility]) DTR's/Clonus: DTRs 2+; No Clonus (Zoe Oneil, [facility]) Headache: Denies (Zoe Oneil, [facility]) Breath Sounds, Left: Clear and Equal (Zoe Oneil, [facility]) Breath Sounds, Right: Clear and Equal (Zoe Oneil, [facility]) Nausea/Vomiting: Denies (Zoe Oneil, [facility]) RUQ Epigastric Pain: Denies (Zoe Oneil, [facility]) Teaching Instructional Method: Verbal (Zoe Riggs, [facility]) Plan of Care: Plan of Care Discussed (Zoe Riggs, [facility]) Unit Routine: [place] to Room; Call Maurice; Bed; Monitoring; Bathroom Privileges (Zoejuancarlos Riggs, [facility]) Datetime: 12/05/2016 18:27 Vital Signs NBP Sys/Andree/Mean (mmHg): 102 (QS system process) : 66 (QS system process) : 79 (QS system process) Pulse: 83 (QS system process) Communication LaborFlag: Antepartum (QS system process)
== END 2016-12-05 19:58 | disposition home or self-care (01) ==
LOC: LC 18:01
PROVIDERS: ATTEND Obstetrics & Gynecology
PROC: 4A1HXCZ Monitoring of Products of Conception, Cardiac Rate, External Approach (ICD-10-PCS; principal; 2016-12-05)
DX: O47.1 False labor at or after 37 completed weeks of gestation (principal); Z3A.39 39 weeks gestation of pregnancy
CPT/HCPCS: 59025; 80307; 81005

== ENCOUNTER 2016-12-08 05:04 | Inpatient (IN) | payer MEDICAID ==
[2016-12-05 11:37] LABS: ABSOLUTE LYMPHOCYTES (AUTO) 2.3 10^3/uL (0.5-4.7); ABSOLUTE MONOCYTES (AUTO) 0.8 10^3/uL (0.1-1.4); ABSOLUTE NEUT (AUTO) 6.6 10^3/uL (1.7-8.2); BASOPHILS % (AUTO) 0.2 % (0-2); EOSINOPHILS % (AUTO) 0.4 % (0-6); HEMATOCRIT 36.1 % (36.0-47.0); HGB HCT DIFFERENCE -0.1; LYMPHOCYTES % (AUTO) 23.7 % (13-45); MEAN CORPUSCULAR HEMOGLOBIN 29.9 pg (27.0-33.4); MEAN CORPUSCULAR HGB CONC 33.3 g/dL (32.0-36.0); MEAN CORPUSCULAR VOLUME 90 fl (80-97); MONOCYTES % (AUTO) 8.1 % (3-13); RED BLOOD COUNT 4.02 10^6/uL (3.72-5.28); RED CELL DISTRIBUTION WIDTH 15.3 % (11.5-14.0); SEGMENTED NEUTROPHILS % (AUTO) 67.6 % (42-78); WHITE BLOOD COUNT 9.8 10^3/uL (4.0-10.5)
[2016-12-05 11:44] LABS: APPEARANCE,URINE CLEAR; BILIRUBIN,URINE NEGATIVE (NEGATIVE); GLUCOSE, URINE NEGATIVE (NEGATIVE); KETONES,URINE NEGATIVE (NEGATIVE); LEUKOCYTE ESTERASE,URINE NEGATIVE (NEGATIVE); NITRITE,URINE NEGATIVE (NEGATIVE); PROTEIN,URINE NEGATIVE (NEGATIVE); URINE SPECIFIC GRAVITY 1.002; UROBILINOGEN,URINE NEGATIVE mg/dL (<2.0)
[2016-12-05 12:12] LABS: URINE BARBITURATES SCREEN NEGATIVE; URINE METHADONE SCREEN NEGATIVE; URINE OPIATES LOW NEGATIVE; URINE PHENCYCLIDINE SCREEN NEGATIVE
[~2016-12-08 05:04] MED LIST: LACTATED RINGERS 1000 ML IV PRN; LIDOCAINE 0.5% INJ-PF (5 MG/ML) 50 ML SDV SUBCUT PRN; RINGERS SOLUTION,LACTATED 2,000 ML IV PRN
[2016-12-08] MEDS ORDERED: FENTANYL CITRATE INJ/PF 100 MCG/2 ML AMPUL ONE (06:44)
[2016-12-08] MEDS ORDERED: OXYTOCIN 10 UNIT/ML VIAL ONE ×2 (06:44→08:17)
[2016-12-08] MEDS ORDERED: EPHEDRINE SULFATE INJ 50 MG/1 ML AMPULE ONE (06:45)
[2016-12-08] MEDS ORDERED: MIDAZOLAM 2 MG/2 ML INJ ONE (06:45)
[2016-12-08] MEDS ORDERED: ONDANSETRON HCL INJ/PF 4 MG/2 ML SDV ONE (06:45)
[2016-12-08] MEDS ORDERED: FENTANYL CITRATE INJ/PF 250 MCG/5 ML AMPULE ONE (06:45)
[2016-12-08] MEDS ORDERED: OXYTOCIN/NORMAL SALINE 0 UNIT/0 ML RTUINJ ONE (06:45)
[2016-12-08] MEDS: CEFAZOLIN 2 GM/D5W RTU 2 GM/50 ML RTUPB IV PRN ×2 (07:40→13:13)
[2016-12-08] MEDS ORDERED: MEPERIDINE HCL/PF INJ 25 MG/1 ML DISP.SYRIN IV PRN (08:05)
[2016-12-08] MEDS ORDERED: MORPHINE SULFATE 10 MG/ML INJ IV PRN (08:05)
[2016-12-08] MEDS ORDERED: DIPHENHYDRAMINE HCL 50 MG/ML VIAL IV PRN (08:05)
[2016-12-08] MEDS ORDERED: PROMETHAZINE HCL INJ 25 MG/1 ML VIAL IV PRN ×2 (08:05→09:11)
[2016-12-08] MEDS ORDERED: FENTANYL CITRATE INJ/PF 100 MCG/2 ML AMPUL IV PRN ×3 (08:05)
[2016-12-08] MEDS ORDERED: LORAZEPAM INJ 2 MG/1 ML VIAL IV ONE (08:07)
[2016-12-08] MEDS ORDERED: SCOPOLAMINE HYDROBROMIDE 1.5 MG PATCH.TD72 TD ONE (08:07)
[2016-12-08] MEDS ORDERED: OXYTOCIN/NORMAL SALINE 20 UNIT/1,000 ML RTUINJ ONE (08:16)
[2016-12-08] MEDS ORDERED: ACETAMINOPHEN 100 ML IV ONE (09:05)
[2016-12-08] MEDS ORDERED: SIMETHICONE 80 MG TAB.CHEW PO PRN (09:11)
[2016-12-08] MEDS ORDERED: DIPH/PERTUSS(ACELL)/TETANUS VAC/PF 0.5 ML SYR (>=10YO) IM PRN (09:11)
[2016-12-08] MEDS ORDERED: OXYTOCIN/NORMAL SALINE 1,000 ML IV PRN (09:11)
[2016-12-08] MEDS ORDERED: HYDROMORPHONE HCL INJ/PF 2 MG/ML AMPULE IV PRN (09:11)
[2016-12-08] MEDS ORDERED: MEASLES,MUMPS&RUBELLA VACC/PF 0.5 ML VIAL SUBCUT PRN (09:11)
[2016-12-08] MEDS ORDERED: ACETAMINOPHEN 325 MG TABLET PO PRN (09:11)
--- NOTE | 2016-12-08 11:30 | Operative Report ---
Operative Report DATE OF SURGERY: 12/08/16 OPERATION: Primary section ANESTHESIA: Spinal PROCEDURE: PREOPERATIVE DIAGNOSIS: undelivered at [39+2] weeks, marginal placenta previa POSTOPERATIVE DIAGNOSIS: Same as above delivered Procedure: Primary section via Pfannenstiel incision Rehabilitation Construction Specialist:[None] Anesthesia: Spinal Anesthesia provider: [Dr. Love, Femi Hawthorne OPERATION MANAGER, Angel hawthorne OPERATION MANAGER] Estimated blood loss: [600 mL] Urine output: [100 mL] IV fluids: [2500 mL] Complications: [None] Specimens: [None] Findings: [Viable female infant Apgars 7 and 9, 0810, 7 lbs. 10 oz., normal uterus, normal bilateral tubes and ovaries. ] Indications: [31yo at 39+2ega presents for Primary Section due to marginal placenta previa. She was counseled that she could have a vaginal delivery however she strongly desires primary section. The risks/ benefits/alternative were reviewed with the patient and she desired to proceed with Primary Section. She desires IUD for contraception.] Procedure: The patient was taken to the operating room where spinal anesthesia was obtained and found to be adequate. She was then prepped and draped in the normal sterile fashion and placed in the dorsal supine position with a leftward tilt. A Pfannenstiel skin incision was then made and carried through to the underlying layers of the fascia with the scalpel. The fascia was incised in the midline and the incision extended laterally with the Salomon scissors. The superior aspect of the fascial incision was then grasped with Joo clamps elevated and the underlying rectus muscles dissected off [bluntly]. Attention was then turned to the inferior aspect of the fascial incision which in a similar fashion was grasped, tented up with Pipo clamps, and the rectus muscles dissected off [bluntly]. The rectus muscles were then in the midline and the peritoneum at the amount identified and entered [bluntly]. The peritoneal incision was then extended superiorly and inferiorly with good visualization of the bladder. The bladder blade was inserted and the vesicouterine peritoneum identified grasped with Fijian pickups and entered sharply with the Metzenbaum scissors. This incision was then extended laterally with the Metzenbaum scissors and a bladder flap created digitally. The bladder blade was then reinserted and the lower uterine segment incised in a transverse fashion with the scalpel. The uterine incision was then extended bluntly. The bladder blade was removed and the infant's head was delivered from breech presentation (converted from cephalic due to floating head) atraumatically. The nose and mouth were suctioned and the cord doubly clamped and cut. And the infant was handed off to waiting pediatricians. The placenta was then delivered spontaneously and the uterus exteriorized and cleared of all clots and debris. The uterine incision was then repaired with 1- 0 Vicryl in a running locked fashion. A second layer of the same suture was used to obtain hemostasis via imbrication of the initial layer. The bladder flap was then repaired with 3-0 chromic in a running fashion. The uterus was returned to the patient's abdomen and Interceed was placed overlying the uterine incision to prevent adhesions. The gutters were cleared of all clots and debris. The peritoneum was closed with 3-0 chromic in a running fashion. All operative sites were noted to be hemostatic. The fascia was reapproximated with 0 Vicryl in a running fashion from each lateral edge to the midline. The skin was closed with 3-0 Monocryl in a running subcuticular fashion with overlying Dermabond for additional dressing as well as wound closure. The patient tolerated the procedure well. Sponge lap needle and instrument counts are correct times 2. 2 g of Ancef were given prior to skin incision. The patient was taken to the recovery area awake and in stable condition.
[2016-12-08] MEDS: DOCUSATE SODIUM 100 MG CAPSULE PO SCH ×2 (12:04→17:46)
[2016-12-08] MEDS: METOPROLOL SUCCINATE 50 MG TAB.SR.24H PO SCH ×2 (12:04→22:32)
[2016-12-08] MEDS: SERTRALINE HCL 50 MG TABLET PO SCH (12:04)
[2016-12-08] MEDS: PRENATAL VITAMIN W-O CA NO5/FE FUMARATE/FA CAPSULE PO SCH (12:04)
[2016-12-08] MEDS: KETOROLAC TROMETHAMINE INJ/PF 30 MG/1 ML SDV IV SCH ×2 (12:05→17:47)
[2016-12-08] MEDS: OXYCODONE-ACETAMINOPHEN 5-325 MG TABLET PO PRN ×2 (12:06→16:39)
[2016-12-08] MEDS: ALPRAZOLAM 0.5 MG TABLET PO PRN ×2 (12:06→19:45)
[2016-12-09] MEDS: KETOROLAC TROMETHAMINE INJ/PF 30 MG/1 ML SDV IV SCH (03:15)
[2016-12-09] MEDS: ALPRAZOLAM 0.5 MG TABLET PO PRN ×2 (06:40→18:27)
[2016-12-09] MEDS: IBUPROFEN 800 MG TABLET PO SCH ×4 (06:40→23:28)
[2016-12-09 07:44] LABS: HEMATOCRIT 29.2 % (36.0-47.0); HGB HCT DIFFERENCE 0.8; MEAN CORPUSCULAR HEMOGLOBIN 30.4 pg (27.0-33.4); MEAN CORPUSCULAR HGB CONC 34.1 g/dL (32.0-36.0); MEAN CORPUSCULAR VOLUME 89 fl (80-97); RED BLOOD COUNT 3.28 10^6/uL (3.72-5.28); WHITE BLOOD COUNT 11.9 10^3/uL (4.0-10.5)
--- NOTE | 2016-12-09 09:30 | PDOC PROGRESS REPORT ---
Subjective-OB Subjective: Post Delivery Day: 1 31 year old. Denies any needs at this time, states lochia is stable, pain is well controlled, voiding without difficulty, tolerating diet, passing gas, ambulating steady. Physical Exam (OB) Vital Signs: Temp Pulse Resp BP Pulse Ox 98.6 F 105 H 16 112/66 99 12/09/16 08:08 12/09/16 08:08 12/09/16 08:08 12/09/16 08:08 12/09/16 08:08 Intake & Output 12/08/16 12/09/16 12/10/16 06:59 06:59 06:59 Intake Total 4450 Output Total 4350 Balance 100 - PIH/Pre-Eclampsia Clonus: Negative Headache: Absent Epigastric Pain: No Visual Changes: No - Dressing Removed: Yes Incision: Open, Well Approximated Closure Type: Sutures - Bilateral Tubal Ligation Site: Open - Lochia Lochia Amount: Moderate 25-50 ml Lochia Color: Rubra/Red - Abdomen Description: Soft, Round Hernia Present: No Fundal Description: Firm Fundal Height: u/u - u/2 Objective-Diagnostic Laboratory: 12/09/16 07:17 12/09/16 07:17 WBC 11.9 H RBC 3.28 L Hgb 10.0 L Hct 29.2 L MCV 89 MCH 30.4 MCHC 34.1 RDW 15.0 H Plt Count 203 Assessment and Plan(PN) - Assessment and Plan (1) delivery delivered Is this a current diagnosis for this admission?: YesPlan: routine post op care progressive diet and ambulation (2) Acute blood loss anemia Is this a current diagnosis for this admission?: YesPlan: ferrous sulfate increase dietary iron - Time Spent with Patient Time with patient: Less than 15 minutes Critical Time spent with patient: Less than 15 minutes Medications reviewed and adjusted accordingly: Yes - Disposition Anticipated Discharge: Home Within: within 24 hours
[2016-12-09] MEDS: DOCUSATE SODIUM 100 MG CAPSULE PO SCH ×2 (09:54→18:14)
[2016-12-09] MEDS: METOPROLOL SUCCINATE 50 MG TAB.SR.24H PO SCH ×2 (09:54→21:36)
[2016-12-09] MEDS: SERTRALINE HCL 50 MG TABLET PO SCH (09:55)
[2016-12-09] MEDS: PRENATAL VITAMIN W-O CA NO5/FE FUMARATE/FA CAPSULE PO SCH (09:55)
[2016-12-09] MEDS: OXYCODONE-ACETAMINOPHEN 5-325 MG TABLET PO PRN (21:37)
[2016-12-10] MEDS: OXYCODONE-ACETAMINOPHEN 5-325 MG TABLET PO PRN (03:19)
[2016-12-10] MEDS: ALPRAZOLAM 0.5 MG TABLET PO PRN ×2 (03:19→10:25)
[2016-12-10] MEDS: IBUPROFEN 800 MG TABLET PO SCH ×2 (06:14→12:14)
[2016-12-10 08:57] VITALS: BP 106/62
--- NOTE | 2016-12-10 09:46 | PDOC PROGRESS REPORT ---
Subjective-OB Subjective: Post Delivery Day: 31 year old. Denies any needs at this time Doing well, no c/o, pain under control, voiding, ambulating, scant lochia Physical Exam (OB) Vital Signs: Temp Pulse Resp BP Pulse Ox 98.0 F 77 14 106/62 99 12/10/16 08:54 12/10/16 08:54 12/10/16 08:54 12/10/16 08:54 12/10/16 08:54 Intake & Output 12/09/16 12/10/16 12/11/16 06:59 06:59 06:59 Intake Total 4450 Output Total 4350 Balance 100 - PIH/Pre-Eclampsia Clonus: Negative Headache: Absent Epigastric Pain: No Visual Changes: No - Dressing Removed: Yes Incision: Well Approximated Closure Type: Surgical Glue - Bilateral Tubal Ligation Site: Open - Lochia Lochia Amount: Small 10-25 ml Lochia Color: Rubra/Red - Abdomen Description: Tender Hernia Present: No Fundal Description: Firm Fundal Height: u/u - u/2 Objective-Diagnostic Laboratory: 12/09/16 07:17 Assessment and Plan(PN) - Assessment and Plan (1) delivery delivered Is this a current diagnosis for this admission?: Yes (2) Acute blood loss anemia Is this a current diagnosis for this admission?: Yes - Time Spent with Patient Time with patient: Less than 15 minutes Medications reviewed and adjusted accordingly: Yes - Disposition Anticipated Discharge: Home Within: within 24 hours - home today
--- NOTE | 2016-12-10 09:51 | PDOC DISCHARGE SUMMARY ---
Final Diagnosis Discharge Date: 12/10/16 - Final Diagnosis (1) delivery delivered Is this a current diagnosis for this admission?: Yes (2) Acute blood loss anemia Is this a current diagnosis for this admission?: Yes Discharge Data - Discharge Medication Home Medications: Alprazolam [Xanax Xr 1 mg Tablet Extended Release] 1 mg PO DAILY PRN 04/22/16 Metoprolol Succinate 50 mg PO BID 04/22/16 Qlr502/FA/Omega3/Dha/Fish Oil [ Gummies] 2 each PO DAILY 09/13/16 Ferrous Sulfate [Iron] 325 mg PO BID 11/16/16 Sertraline HCl [Zoloft 50 mg Tablet] 50 mg PO ASDIR PRN 12/05/16 Ibuprofen [Motrin 800 mg Tablet] 800 mg PO Q6 #60 tablet 12/10/16 Oxycodone HCl/Acetaminophen [Percocet 5-325 mg Tablet] 1 tab PO Q4HP PRN #30 tablet 12/10/16 Gestational Age: 39.2 Reason(s) for Admission: Ceasarean Section-Primary Admission Note: position of placenta Procedures: NST, Ultrasound Intrapartum Procedure(s): : Low Cervical, Transverse - [facility] Data Baby 1 Female Home with Mother: Yes Complications: No - Diagnosis Test Laboratory: Temp Pulse Resp BP Pulse Ox 98.0 F 77 14 106/62 99 12/10/16 08:54 12/10/16 08:54 12/10/16 08:54 12/10/16 08:54 12/10/16 08:54 12/05/16 12/05/16 12/09/16 10:22 10:30 07:17 RBC 4.02 3.28 L Hgb 12.0 10.0 L Hct 36.1 29.2 L Urine Opiates Screen NEGATIVE - Discharge information/Instructions Discharge Activity: Activity As Tolerated, No Driving, No Lifting Over 10 Pounds , No Lifting/Push/Pulling, Pelvic Rest, No tub bath, Walk Frequently Discharge Diet: As Tolerated, Regular Disposition: HOME, SELF-CARE Follow up with: [facility] in: 1, Weeks
[2016-12-10] MEDS: DOCUSATE SODIUM 100 MG CAPSULE PO SCH (10:07)
[2016-12-10] MEDS: PRENATAL VITAMIN W-O CA NO5/FE FUMARATE/FA CAPSULE PO SCH (10:08)
[2016-12-10] MEDS: METOPROLOL SUCCINATE 50 MG TAB.SR.24H PO SCH (10:08)
[2016-12-10] MEDS: SERTRALINE HCL 50 MG TABLET PO SCH (10:09)
== END 2016-12-10 15:40 | disposition home or self-care (01) | DRG 765 ==
LOC: 2S 05:04
PROVIDERS: ADMIT Student in an Organized Health Care Education/Training Program; ATTEND Student in an Organized Health Care Education/Training Program
PROC: 4A1HXCZ Monitoring of Products of Conception, Cardiac Rate, External Approach (ICD-10-PCS; 2016-12-08)
PROC: 10D00Z1 Extraction of Products of Conception, Low, Open Approach (ICD-10-PCS; principal; 2016-12-08 07:45)
DX: O44.23 Partial placenta previa NOS or without hemorrhage, third trimester (principal); O99.42 Diseases of the circulatory system complicating childbirth; D62 Acute posthemorrhagic anemia; O99.344 Other mental disorders complicating childbirth; F32.9 Major depressive disorder, single episode, unspecified; O99.02 Anemia complicating childbirth; O99.52 Diseases of the respiratory system complicating childbirth; J45.909 Unspecified asthma, uncomplicated; I34.1 Nonrheumatic mitral (valve) prolapse; F43.10 Post-traumatic stress disorder, unspecified; Z3A.39 39 weeks gestation of pregnancy; Z37.0 Single live birth; Z79.899 Other long term (current) drug therapy; Z90.49 Acquired absence of other specified parts of digestive tract; Z87.891 Personal history of nicotine dependence
CPT/HCPCS: 1961; 36415; 80307; 81001; 85025; 85027; 86850; 86900; 86901; 94799; C1765; J0131; J0690; J1170; J1885; J2250; J2405; J2590; J3010; J3490; J7120

== ENCOUNTER 2016-12-13 16:10 | Emergency (ER) | payer MEDICAID ==
--- NOTE | 2016-12-13 16:24 | ER Document Report ---
ED Medical Screen (RME) - General Stated Complaint: BLOOD PRESSURE PROBLEM Mode of Arrival: Ambulatory Information source: Patient Notes: Patient presents 5 days postop reporting elevated blood pressure at home. Patient states her blood pressure was 144/92. Patient does report swelling to her ankles and some headache symptoms. Patient denies any history of hypertension or problems with blood pressure during the . Patient had a after placenta previa. hx: Mitral valve prolapse I have greeted and performed a rapid initial assessment of this patient. A comprehensive ED assessment and evaluation of the patient, analysis of test results and completion of the medical decision making process will be conducted by additional ED providers. TRAVEL OUTSIDE OF THE [place] IN LAST 30 DAYS: No - Related Data Allergies/Adverse Reactions: No Known Allergies Allergy (Verified 12/05/16 18:41) Past Medical History - Past Medical History Cardiac Medical History: Reports: Hx Heart Murmur - MITRAL VALVE PROLAPSA Denies: Hx Hypertension, Hx Pulmonary Embolism Pulmonary Medical History: Reports: Hx Asthma Denies: Hx Sleep Apnea, Hx Tuberculosis Endocrine Medical History: Reports: Hx Hypothyroidism - DURING 12/05. Denies: Hx Hyperthyroidism Renal/ Medical History: Denies: Hx Kidney Stones, Hx Ovarian Cysts, Hx Pelvic Inflammatory Disease Malignancy Medical History: Reports: Hx Cervical Cancer. Denies: Hx Breast Cancer, Hx Ovarian Cancer GI Medical History: Reports: Hx Gastroesophageal Reflux Disease - DURING . Denies: Hx Hiatal Hernia, Hx Ulcer Psychiatric Medical History: Reports: Hx Depression, Hx Post Traumatic Stress Disorder Denies: Hx Bipolar Disorder, Hx Schizophrenia Infectious Medical History: Denies: Hx HIV Past Surgical History: Reports: Hx Appendectomy, Hx Gynecologic Surgery - CONE biopsy, Hx Oral Surgery - Immunizations Hx Diphtheria, Pertussis, Tetanus Vaccination: No Physical Exam - Vital signs Vitals: Temp Pulse Resp BP Pulse Ox 98.3 F 69 20 121/76 99 12/13/16 16:20 12/13/16 16:20 12/13/16 16:20 12/13/16 16:20 12/13/16 16:20 - General General appearance: Appears well, Alert In distress: None Course - Vital Signs Vital signs: Temp Pulse Resp BP Pulse Ox 98.3 F 69 20 121/76 99 12/13/16 16:20 12/13/16 16:20 12/13/16 16:20 12/13/16 16:20 12/13/16 16:20
[2016-12-13 16:47] LABS: ABSOLUTE EOSINOPHILS # (AUTO) 0.2 10^3/uL (0.0-0.6); ABSOLUTE LYMPHOCYTES (AUTO) 2.5 10^3/uL (0.5-4.7); ABSOLUTE MONOCYTES (AUTO) 0.5 10^3/uL (0.1-1.4); ABSOLUTE NEUT (AUTO) 3.5 10^3/uL (1.7-8.2); BASOPHILS % (AUTO) 0.3 % (0-2); EOSINOPHILS % (AUTO) 2.4 % (0-6); HEMOGLOBIN 10.8 g/dL (12.0-15.5); HGB HCT DIFFERENCE 0.4; LYMPHOCYTES % (AUTO) 37.1 % (13-45); MEAN CORPUSCULAR HEMOGLOBIN 30.1 pg (27.0-33.4); MEAN CORPUSCULAR HGB CONC 33.8 g/dL (32.0-36.0); MEAN CORPUSCULAR VOLUME 89 fl (80-97); MONOCYTES % (AUTO) 7.8 % (3-13); RED BLOOD COUNT 3.59 10^6/uL (3.72-5.28); RED CELL DISTRIBUTION WIDTH 14.5 % (11.5-14.0); SEGMENTED NEUTROPHILS % (AUTO) 52.4 % (42-78); WHITE BLOOD COUNT 6.6 10^3/uL (4.0-10.5)
[2016-12-13 17:00] LABS: ALANINE AMINOTRANSFERASE 37 U/L (9-52); ALBUMIN 3.2 g/dL (3.5-5.0); ALKALINE PHOSPHATASE 70 U/L (38-126); ANION GAP 10 (5-19); ASPARTATE AMINO TRANSFERASE 31 U/L (14-36); BILIRUBIN,DIRECT 0.2 mg/dL (0.0-0.4); BILIRUBIN,TOTAL 0.7 mg/dL (0.2-1.3); BLOOD UREA NITROGEN 8 mg/dL (7-20); CALCIUM 9.1 mg/dL (8.4-10.2); CARBON DIOXIDE 27 mmol/L (22-30); CHLORIDE 103 mmol/L (98-107); CREATININE RESULT 0.68 mg/dL (0.52-1.25); GLUCOSE 109 mg/dL (75-110); SODIUM 139.5 mmol/L (137-145); TOTAL PROTEIN 5.9 g/dL (6.3-8.2)
--- NOTE | 2016-12-13 18:36 | ER Document Report ---
ED Blood Pressure Problem - General Chief Complaint: Blood Pressure Problem Stated Complaint: BLOOD PRESSURE PROBLEM Time seen by provider: 18:36 Mode of Arrival: Ambulatory Information source: Patient TRAVEL OUTSIDE OF THE [place] IN LAST 30 DAYS: No - HPI Patient complains to provider of: High blood pressure Onset: This morning Onset/Duration: Intermittent, Waxing and waning Quality of pain: Achy Severity: Mild Associated symptoms: Blurred vision, Headache Similar symptoms previously: No Recently seen / treated by doctor: Yes Notes: Patient is a 31-year-old female who is 5 days via secondary to placenta previa, who presents to the emergency room complaining of elevated blood pressure measured at 144/92 at home, with a mild frontal headache , feet swelling and occasional double vision, patient denies a history of hypertension prior to or during her , this was her first , she does have a history of mitral valve prolapse and takes Lopressor 50 mg twice a day for rate control, she also reports a history of anxiety which she takes Xanax for, she is also on oxycodone Motrin and iron supplementation, patient's [facility] follow[facility] - Related Data Allergies/Adverse Reactions: No Known Allergies Allergy (Verified 12/13/16 16:24) Past Medical History - General Information source: Patient - Social History Smoking Status: Never Smoker Chew tobacco use (# tins/day): No Frequency of alcohol use: Occasional Drug Abuse: None Family History: None - Past Medical History Cardiac Medical History: Reports: Hx Heart Murmur - MITRAL VALVE PROLAPSA Denies: Hx Hypertension, Hx Pulmonary Embolism Pulmonary Medical History: Reports: Hx Asthma Denies: Hx Sleep Apnea, Hx Tuberculosis Endocrine Medical History: Reports: Hx Hypothyroidism - DURING 12/05. Denies: Hx Hyperthyroidism Renal/ Medical History: Denies: Hx Kidney Stones, Hx Ovarian Cysts, Hx Peritoneal Dialysis, Hx Pelvic Inflammatory Disease Malignancy Medical History: Reports: Hx Cervical Cancer. Denies: Hx Breast Cancer, Hx Ovarian Cancer GI Medical History: Reports: Hx Gastroesophageal Reflux Disease - DURING . Denies: Hx Hiatal Hernia, Hx Ulcer Psychiatric Medical History: Reports: Hx Depression, Hx Post Traumatic Stress Disorder Denies: Hx Bipolar Disorder, Hx Schizophrenia Infectious Medical History: Denies: Hx HIV Past Surgical History: Reports: Hx Appendectomy, Hx Gynecologic Surgery - CONE biopsy, Hx Oral Surgery - Immunizations Hx Diphtheria, Pertussis, Tetanus Vaccination: No Review of Systems - Review of Systems Constitutional: No symptoms reported EENT: Double vision Cardiovascular: Edema Respiratory: No symptoms reported Gastrointestinal: No symptoms reported Genitourinary: No symptoms reported Female Genitourinary: No symptoms reported Musculoskeletal: No symptoms reported Skin: No symptoms reported Hematologic/Lymphatic: No symptoms reported Neurological/Psychological: Headaches -: Yes All other systems reviewed and negative Physical Exam - Vital signs Vitals: Temp Pulse Resp BP Pulse Ox 98.3 F 69 20 121/76 99 12/13/16 16:20 12/13/16 16:20 12/13/16 16:20 12/13/16 16:20 12/13/16 16:20 Interpretation: Normal - General General appearance: Appears well, Alert - HEENT Head: Normocephalic, Atraumatic Eyes: Normal Conjunctiva: Normal Extraocular movements intact: Yes Eyelashes: Normal Pupils: PERRL - Respiratory Respiratory status: No respiratory distress Chest status: Nontender Breath sounds: Normal Chest palpation: Normal - Cardiovascular Rhythm: Regular Heart sounds: Normal auscultation Murmur: No - Abdominal Inspection: Normal Distension: No distension Bowel sounds: Normal Tenderness: Nontender Organomegaly: No organomegaly - Back Back: Normal, Nontender - Extremities General upper extremity: Normal inspection, Nontender, Normal color, Normal ROM , Normal temperature General lower extremity: Normal inspection, Nontender, Normal color, Normal ROM , Normal temperature. No: Edema, Xavi's sign - Neurological Neuro grossly intact: Yes Cognition: Normal Orientation: AAOx4 [place] Coma Scale Eye Opening: Spontaneous [place] Coma Scale Verbal: Oriented [place] Coma Scale Motor: Obeys Commands [place] Coma Scale Total: 15 Speech: Normal Motor strength normal: LUE, RUE, LLE, RLE Sensory: Normal - Psychological Associated symptoms: Normal affect, Normal mood - Skin Skin Temperature: Warm Skin Moisture: Dry Skin Color: Normal Course - Re-evaluation Re-evalutation: 12/13/16 20:31 A call was placed to [facility] on-call, Dr. Bowie, voicemail was left for her to call back 12/13/16 21:11 Patient was discussed with [facility] who agrees with discharge and outpatient follow-up, no medication adjustments at this point in time 12/13/16 21:23 Lab findings were discussed with patient at bedside which are not consistent with preeclampsia, patient was advised to continue taking her metoprolol as previously prescribed for MVP, follow up with her [facility] on Thursday as scheduled , return to the emergency room if symptoms worsen, patient acknowledges understanding and agreement with this plan - Vital Signs Vital signs: Temp Pulse Resp BP Pulse Ox 97.6 F 72 18 120/79 98 12/13/16 19:33 12/13/16 20:39 12/13/16 20:39 12/13/16 20:39 12/13/16 20:39 - Laboratory Result Diagrams: 12/13/16 16:30 12/13/16 16:30 Laboratory results interpreted by me: 12/13/16 12/13/16 12/13/16 16:30 16:30 18:48 RBC 3.59 L Hgb 10.8 L Hct 32.0 L RDW 14.5 H Lactate Dehydrogenase Total Protein 5.9 L Albumin 3.2 L Urine Blood LARGE H Ur Leukocyte Esterase TRACE H 12/13/16 19:48 RBC Hgb Hct RDW Lactate Dehydrogenase 659 H Total Protein Albumin Urine Blood Ur Leukocyte Esterase Discharge - Discharge Clinical Impression: Hypertension Qualifiers: Hypertension type: unspecified secondary hypertension Qualified Code(s): I15.9 - Secondary hypertension, unspecified Condition: Stable Disposition: HOME, SELF-CARE Instructions: High Blood Pressure ([facility]) Additional Instructions: Follow up with your [facility] on Thursday as scheduled. Follow up with your primary care provider in the next 1-2 days. Return to the emergency room immediately if symptoms worsen or any additional concerns. Referrals: MANOJ CULLEN MD [Primary Care Provider] - Follow up as needed
[2016-12-13 19:14] LABS: APPEARANCE,URINE SLIGHTLY-CLOUDY; BILIRUBIN,URINE NEGATIVE (NEGATIVE); GLUCOSE, URINE NEGATIVE (NEGATIVE); KETONES,URINE NEGATIVE (NEGATIVE); LEUKOCYTE ESTERASE,URINE TRACE (NEGATIVE); NITRITE,URINE NEGATIVE (NEGATIVE); PROTEIN,URINE NEGATIVE (NEGATIVE); URINE SPECIFIC GRAVITY 1.004; UROBILINOGEN,URINE NEGATIVE mg/dL (<2.0)
[2016-12-13 20:24] LABS: URIC ACID 5.1 mg/dL (2.5-6.2)
[2016-12-13 20:39] VITALS: BP 120/79
== END 2016-12-13 21:10 | disposition home or self-care (01) ==
LOC: ER 16:10
DX: O90.9 Complication of the puerperium, unspecified (principal); I15.9 Secondary hypertension, unspecified; R51 Headache; H53.8 Other visual disturbances
CPT/HCPCS: 36415; 80053; 81001; 82570; 83615; 84156; 84550; 85025; 99283

== ENCOUNTER 2016-12-21 12:08 | Emergency (ER) | payer MEDICAID ==
[2016-12-21 13:01] LABS: ABSOLUTE EOSINOPHILS # (AUTO) 0.1 10^3/uL (0.0-0.6); ABSOLUTE LYMPHOCYTES (AUTO) 2.1 10^3/uL (0.5-4.7); ABSOLUTE MONOCYTES (AUTO) 0.4 10^3/uL (0.1-1.4); ABSOLUTE NEUT (AUTO) 5.1 10^3/uL (1.7-8.2); BASOPHILS % (AUTO) 0.2 % (0-2); EOSINOPHILS % (AUTO) 0.9 % (0-6); HEMATOCRIT 38.3 % (36.0-47.0); HGB HCT DIFFERENCE 0.7; LYMPHOCYTES % (AUTO) 27.5 % (13-45); MEAN CORPUSCULAR HEMOGLOBIN 29.8 pg (27.0-33.4); MEAN CORPUSCULAR HGB CONC 33.9 g/dL (32.0-36.0); MEAN CORPUSCULAR VOLUME 88 fl (80-97); MONOCYTES % (AUTO) 5.7 % (3-13); RED BLOOD COUNT 4.36 10^6/uL (3.72-5.28); RED CELL DISTRIBUTION WIDTH 14.1 % (11.5-14.0); SEGMENTED NEUTROPHILS % (AUTO) 65.7 % (42-78); WHITE BLOOD COUNT 7.7 10^3/uL (4.0-10.5)
[2016-12-21 13:11] LABS: ANION GAP 13 (5-19); BLOOD UREA NITROGEN 9 mg/dL (7-20); CALCIUM 10.3 mg/dL (8.4-10.2); CARBON DIOXIDE 28 mmol/L (22-30); CHLORIDE 103 mmol/L (98-107); CREATININE RESULT 0.74 mg/dL (0.52-1.25); GLUCOSE 98 mg/dL (75-110); POTASSIUM 4.5 mmol/L (3.6-5.0); SODIUM 144.2 mmol/L (137-145)
[2016-12-21 13:14] LABS: APPEARANCE,URINE CLEAR; BILIRUBIN,URINE NEGATIVE (NEGATIVE); GLUCOSE, URINE NEGATIVE (NEGATIVE); KETONES,URINE NEGATIVE (NEGATIVE); LEUKOCYTE ESTERASE,URINE MODERATE (NEGATIVE); NITRITE,URINE NEGATIVE (NEGATIVE); PROTEIN,URINE NEGATIVE (NEGATIVE); URINE SPECIFIC GRAVITY 1.003; UROBILINOGEN,URINE NEGATIVE mg/dL (<2.0)
--- NOTE | 2016-12-21 13:39 | ER Document Report ---
ED General - General Chief Complaint: Numbness Stated Complaint: PAINFUL URINATION TRAVEL OUTSIDE OF THE [place] IN LAST 30 DAYS: No - HPI Patient complains to provider of: dysuria whole-body numbness Notes: 5-12 days ago the fevers chills nausea vomiting diarrhea. Patient complaining of fall by numbness and dysuria. Patient is tearful follow-up examination. Patient is a . - Related Data Allergies/Adverse Reactions: No Known Allergies Allergy (Verified 12/21/16 12:13) Past Medical History - Social History Smoking Status: Unknown if Ever Smoked Family History: None Patient has suicidal ideation: No Patient has homicidal ideation: No - Past Medical History Cardiac Medical History: Reports: Hx Heart Murmur - MITRAL VALVE PROLAPSA Denies: Hx Hypertension, Hx Pulmonary Embolism Pulmonary Medical History: Reports: Hx Asthma Denies: Hx Sleep Apnea, Hx Tuberculosis Endocrine Medical History: Reports: Hx Hypothyroidism - DURING 12/05. Denies: Hx Hyperthyroidism Renal/ Medical History: Denies: Hx Kidney Stones, Hx Ovarian Cysts, Hx Peritoneal Dialysis, Hx Pelvic Inflammatory Disease Malignancy Medical History: Reports: Hx Cervical Cancer. Denies: Hx Breast Cancer, Hx Ovarian Cancer GI Medical History: Reports: Hx Gastroesophageal Reflux Disease - DURING . Denies: Hx Hiatal Hernia, Hx Ulcer Psychiatric Medical History: Reports: Hx Depression, Hx Post Traumatic Stress Disorder Denies: Hx Bipolar Disorder, Hx Schizophrenia Infectious Medical History: Denies: Hx HIV Past Surgical History: Reports: Hx Appendectomy, Hx Gynecologic Surgery - CONE biopsy, Hx Oral Surgery - Immunizations Hx Diphtheria, Pertussis, Tetanus Vaccination: No Review of Systems - Review of Systems Constitutional: No symptoms reported EENT: No symptoms reported Cardiovascular: No symptoms reported Respiratory: No symptoms reported Gastrointestinal: No symptoms reported Genitourinary: Dysuria Female Genitourinary: No symptoms reported Musculoskeletal: No symptoms reported Skin: No symptoms reported Hematologic/Lymphatic: No symptoms reported Neurological/Psychological: Numbness -: Yes All other systems reviewed and negative Physical Exam - Vital signs Vitals: Temp Pulse Resp BP Pulse Ox 98.0 F 95 16 121/89 H 97 12/21/16 12:12 12/21/16 12:12 12/21/16 12:12 12/21/16 12:12 12/21/16 12:12 Interpretation: Normal - General General appearance: Appears well, Alert - HEENT Head: Normocephalic, Atraumatic Eyes: Normal Pupils: PERRL - Respiratory Respiratory status: No respiratory distress Chest status: Nontender Breath sounds: Normal Chest palpation: Normal - Cardiovascular Rhythm: Regular Heart sounds: Normal auscultation Murmur: No - Abdominal Inspection: Normal Distension: No distension Bowel sounds: Normal Tenderness: Nontender Organomegaly: No organomegaly - Back Back: Normal, Nontender - Extremities General upper extremity: Normal inspection, Nontender, Normal color, Normal ROM , Normal temperature General lower extremity: Normal inspection, Nontender, Normal color, Normal ROM , Normal temperature, Normal weight bearing. No: Xavi's sign - Neurological Neuro grossly intact: Yes Cognition: Normal Orientation: AAOx4 [place] Coma Scale Eye Opening: Spontaneous [place] Coma Scale Verbal: Oriented [place] Coma Scale Motor: Obeys Commands [place] Coma Scale Total: 15 Speech: Normal Motor strength normal: LUE, RUE, LLE, RLE Sensory: Normal - Psychological Associated symptoms: Normal affect, Normal mood - Skin Skin Temperature: Warm Skin Moisture: Dry Skin Color: Normal Course - Re-evaluation Re-evalutation: 12/21/16 13:41 Patient numbness more likely due to anxiety. Patient urinalysis possible early infection with dysuria will cover with Macrobid and give Azo. Patient encouraged follow-up your TRANSMISSION MAINTENANCE SUPERVISOR for further evaluation. - Vital Signs Vital signs: Temp Pulse Resp BP Pulse Ox 98.0 F 95 16 121/89 H 97 12/21/16 12:12 12/21/16 12:12 12/21/16 12:12 12/21/16 12:12 12/21/16 12:12 - Laboratory Result Diagrams: 12/21/16 12:35 12/21/16 12:35 Laboratory results interpreted by me: 12/21/16 12/21/16 12/21/16 12:35 12:35 12:35 RDW 14.1 H Calcium 10.3 H Urine Blood LARGE H Ur Leukocyte Esterase MODERATE H Discharge - Discharge Clinical Impression: Numbness Urinary tract infection Qualifiers: Urinary tract infection type: site unspecified Hematuria presence: without hematuria Qualified Code(s): N39.0 - Urinary tract infection, site not specified Instructions: Urinary Tract Infection ([facility]), Nitrofurantoin ([facility]), Anxiety ([facility] ) Additional Instructions: Take medication as prescribed. Return to ER symptoms worsen. Follow-up with your primary care physician. More likely the numbness can be due to possible anxiety. I highly recommend following up with your TRANSMISSION MAINTENANCE SUPERVISOR for further evaluation. Prescriptions: Nitrofurantoin Monohyd/M-Cryst [Macrobid 100 mg Capsule] 100 mg PO BID #14 capsule Phenazopyridine HCl [Azo Urinary Pain Relief] 97.5 mg PO TID #15 tablet Forms: Return to Work
[2016-12-21 14:05] VITALS: BP 117/74
== END 2016-12-21 13:55 | disposition home or self-care (01) ==
LOC: ER 12:08
DX: N39.0 Urinary tract infection, site not specified (principal); R20.0 Anesthesia of skin; R30.0 Dysuria; W19.XXXA Unspecified fall, initial encounter
CPT/HCPCS: 36415; 80048; 81001; 83735; 85025; 99284

== ENCOUNTER 2017-01-12 17:15 | Emergency (ER) | payer MEDICAID ==
--- NOTE | 2017-01-12 18:44 | ER Document Report ---
ED GI/ - General Chief Complaint: Possible UTI Stated Complaint: URINARY SYMPTOMS Time seen by provider: 18:43 Mode of Arrival: Ambulatory Information source: Patient Notes: 21-year-old female presents to ED for urinary tract symptoms. She states she has low back pain as well as bladder pain. She states that she was treated for a UTI about 2 or 3 weeks ago. She had a baby 5 weeks ago by section states she had a Montano catheter at that times. TRAVEL OUTSIDE OF THE [place] IN LAST 30 DAYS: No - HPI Patient complains to provider of: Flank pain, Other - Bladder pain Timing/Duration: Intermittent Quality of pain: Achy, Throbbing Severity at maximum: Moderate Severity in ED: Moderate Pain Level: 4 Location: Low back, Other - Headache and also some folliculitis. 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 Lives with: Spouse/Significant other - Fianc and child Family History: Arthritis, CAD, CVA, Hyperlipidemia, Hypertension, Malignancy, Thyroid Disfunction Patient has suicidal ideation: No Patient has homicidal ideation: No - Past Medical History Cardiac Medical History: Reports: Hx Heart Murmur - MITRAL VALVE PROLAPSA, Other - Mitral valve prolapse Pulmonary Medical History: Reports: Hx Asthma, Hx Bronchitis Neurological Medical History: Reports: Hx Migraine Endocrine Medical History: Reports: Hx Hypothyroidism - DURING 12/05 Renal/ Medical History: Reports: None Malignancy Medical History: Reports: Hx Cervical Cancer GI Medical History: Reports: Hx Gastroesophageal Reflux Disease - DURING Musculoskeltal Medical History: Reports Hx Musculoskeletal Trauma - Anterior cruciate ligament injury Skin Medical History: Reports None Psychiatric Medical History: Reports: Hx Anxiety - MONIKA, panic disorder social anxiety disorder, Hx Depression, Hx Post Traumatic Stress Disorder Traumatic Medical History: Reports: None Infectious Medical History: Reports: None Past Surgical History: Reports: Hx Appendectomy, Hx Section, Hx Gynecologic Surgery - CONE biopsy, Hx Oral Surgery - Immunizations Hx Diphtheria, Pertussis, Tetanus Vaccination: No Review of Systems - Review of Systems Constitutional: No symptoms reported EENT: No symptoms reported Cardiovascular: No symptoms reported Respiratory: No symptoms reported Gastrointestinal: No symptoms reported Genitourinary: Flank pain, Other - About pubic discomfort Female Genitourinary: No symptoms reported Musculoskeletal: Back pain - Low back pain Skin: Lesions - Maculopapules to hair follicles, Other - Folliculitis Hematologic/Lymphatic: No symptoms reported Neurological/Psychological: No symptoms reported -: Yes All other systems reviewed and negative Physical Exam - Vital signs Vitals: Temp Pulse Resp BP Pulse Ox 98.0 F 64 16 117/87 H 99 01/12/17 17:59 01/12/17 17:59 01/12/17 17:59 01/12/17 17:59 01/12/17 17:59 Interpretation: Normal - General General appearance: Appears well, Alert - HEENT Head: Normocephalic, Atraumatic Eyes: Normal Pupils: PERRL - Respiratory Respiratory status: No respiratory distress Chest status: Nontender Breath sounds: Normal Chest palpation: Normal - Cardiovascular Rhythm: Regular Heart sounds: Normal auscultation Murmur: No - Abdominal Inspection: Normal Distension: No distension Bowel sounds: Normal Tenderness: Nontender Organomegaly: No organomegaly - Back Back: Normal, Nontender - Extremities General upper extremity: Normal inspection, Nontender, Normal color, Normal ROM , Normal temperature General lower extremity: Normal inspection, Nontender, Normal color, Normal ROM , Normal temperature, Normal weight bearing. No: Xavi's sign - Neurological Neuro grossly intact: Yes Cognition: Normal Orientation: AAOx4 [place] Coma Scale Eye Opening: Spontaneous [place] Coma Scale Verbal: Oriented [place] Coma Scale Motor: Obeys Commands [place] Coma Scale Total: 15 Speech: Normal Motor strength normal: LUE, RUE, LLE, RLE Sensory: Normal - Psychological Associated symptoms: Normal affect, Normal mood - Skin Skin Temperature: Warm Skin Moisture: Dry Skin Color: Normal Location of irregularity: Face, Ears, Neck, Abdomen, Back, Extremities Character of irregularity: Maculopapular Course - Re-evaluation Re-evalutation: 01/12/17 19:03 Discussed lab work with patient and written report given to patient. Her urine was negative for UTI have sent it for culture just to ensure this. I have also started her on doxycycline for her folliculitis. - Vital Signs Vital signs: Temp Pulse Resp BP Pulse Ox 98.0 F 64 16 117/87 H 99 01/12/17 17:59 01/12/17 17:59 01/12/17 17:59 01/12/17 17:59 01/12/17 17:59 - Laboratory Laboratory results interpreted by me: 01/12/17 18:35 Ur Leukocyte Esterase SMALL H Discharge - Discharge Clinical Impression: Folliculitis Low back pain Qualifiers: Chronicity: acute Back pain laterality: bilateral Sciatica presence: without sciatica Qualified Code(s): M54.5 - Low back pain Condition: Stable Disposition: HOME, SELF-CARE Instructions: Stretching Exercises for the Back ([facility]) Additional Instructions: Folliculitis You have a skin infection called folliculitis. This occurs when bacteria infect the hair follicles of the skin. Typically, redness and small pustules are found where hair shafts enter the skin. Allergy, surface irritation, shaving, and exposure to hot tubs predispose to folliculitis. The usual treatment is antibiotic ointment, sometimes combined with cortisone-type medication. Warm compresses are often used. If the infection has moved deeper into the skin, oral antibiotics may be necessary. To avoid future episodes of folliculitis, you must identify (if possible) the factors which allowed this infection to start. If you develop increasing pain, swelling, fever, or red streaks, call the doctor or return for re-evaluation. LOW BACK PAIN: Three out of every four people will have an episode of disabling back pain during their lifetime. Most commonly the pain is due to straining of the muscles and ligaments in the low back. Usual treatment includes: (1) Rest on a firm surface. Avoid lying on your stomach. (2) Ice pack the painful area. After a few days, gentle heat may be used intermittently to relax the area, or ice packs can be continued. (3) Medication may be needed -- muscle relaxers and antiinflammatory medicines are commonly used. (4) As the back improves, exercises are prescribed to strengthen the back and abdominal muscles. Your doctor will advise you on the proper care for your back at each stage in your recovery. You may be better in a few days -- or healing may take several weeks. If new symptoms of a "herniated disc" (radiation of pain, numbness, or tingling down the back of the leg or weakness in the leg) occur, you should be re-examined. Further testing may be necessary. Doxycycline Doxycycline (Vibramycin, Doryx) is an antibiotic of the tetracycline family. This type of drug is useful for infections of the respiratory tract and genital tract, and is sometimes used for intestinal infections. Unlike most tetracyclines, doxycycline can be taken with food. It is longer acting, and (usually) less prone to side effects than regular tetracycline. Tetracycline antibiotics can stain immature teeth and SHOULD NOT BE TAKEN BY CHILDREN, NURSING MOTHERS, OR WOMEN. Tetracyclines can make you more prone to sunburn. Abdominal cramping, nausea, and diarrhea are occasional side effects. Women may experience vaginal yeast infections. Call the doctor at once if you develop hives, itching, shortness of breath , or lightheadedness. ICE PACKS: Apply ice packs frequently against the painful area. Many different schedules are recommended, such as "20 minutes on, 20 minutes off" or "one hour ice, two hours rest." If you need to work, you may need to go longer between ice treatments. You should plan to have the area ice packed AT LEAST one fourth of the time. The ice should be applied over the wrap, tape, or splint, or over a layer of cloth -- not directly against the skin. Some ice bags have a built-in cloth and can be put directly on the skin. WARM PACKS: After approximately two days, apply gentle heat (such as a heating pad or hot water bottle) for about 20 to 30 minutes about every two hours -- at least four times daily. Warmth and elevation will help you make a more rapid recovery , and will ease the pain considerably. Do not use HOT heat, and never apply heat for longer than 30 minutes. The continuous heat can invisibly damage skin and muscles -- even when no burn is seen on the surface. Damaged muscles can make you MORE sore. USE OF [id number] IBUPROFEN: Ibuprofen (Advil, Nuprin, Medipren, Motrin IB) is a medication for fever and pain control. In addition, it has anti- inflammatory effects which may be beneficial, especially in the treatment of injuries. It's best to take ibuprofen with food. Persons with ulcer disease or allergy to aspirin should notify their physician of this before taking ibuprofen. Ibuprofen can be given every four to six hours, for a total of four doses daily. Age Pain or fever dose Antiinflammatory dose 6-8 yr 200 mg (1 tab) 200 mg (1 tab) 9-11 yr 200 mg (1 tab) 200-400 mg (1-2 tab) 11-14 yr 200-400 mg (1-2 tab) 400 mg (2 tab) 15-adult 400 mg (2 tab) 600 mg (3 tab) FOLLOW-UP CARE: If you have been referred to a physician for follow-up care, call the physician s office for an appointment as you were instructed or within the next two days. If you experience worsening or a significant change in your symptoms, notify the physician immediately or return to the Emergency Department at any time for re-evaluation. Prescriptions: Doxycycline Hyclate [Vibramycin 100 mg Tablet] 100 mg PO BID #20 tablet
[2017-01-12] MEDS ORDERED: DOXYCYCLINE HYCLATE 100 MG TABLET PO ONE (18:47)
[2017-01-12] MEDS ORDERED: ACETAMINOPHEN 325 MG TABLET PO ONE (18:48)
[2017-01-12 18:57] LABS: APPEARANCE,URINE SLIGHTLY-CLOUDY; BILIRUBIN,URINE NEGATIVE (NEGATIVE); GLUCOSE, URINE NEGATIVE (NEGATIVE); KETONES,URINE NEGATIVE (NEGATIVE); LEUKOCYTE ESTERASE,URINE SMALL (NEGATIVE); NITRITE,URINE NEGATIVE (NEGATIVE); PROTEIN,URINE NEGATIVE (NEGATIVE); URINE SPECIFIC GRAVITY 1.024; UROBILINOGEN,URINE NEGATIVE mg/dL (<2.0)
[2017-01-12 19:55] VITALS: BP 103/66
== END 2017-01-12 19:55 | disposition home or self-care (01) ==
LOC: ER 17:15
DX: O90.9 Complication of the puerperium, unspecified (principal); M54.5 Low back pain; L73.9 Follicular disorder, unspecified; R51 Headache
CPT/HCPCS: 99283; 87086; 81025; 87088; 81001; J3490 ×2

== ENCOUNTER 2017-02-01 10:47 | Emergency (ER) | payer MEDICAID ==
[2017-02-01 10:51] VITALS: BP 115/74
[2017-02-01] MEDS ORDERED: IBUPROFEN 800 MG TABLET PO ONE (11:24)
--- NOTE | 2017-02-01 11:26 | ER Document Report ---
ED Skin Rash/Insect Bite/Abscs - General Chief Complaint: Rash Stated Complaint: RASH Time Seen by Provider: 02/01/17 11:05 Mode of Arrival: Ambulatory Information source: Patient Notes: 31-year-old female presents to ED for inset bites to both arms and her neck since Thursday TRAVEL OUTSIDE OF THE [place] IN LAST 30 DAYS: No - HPI Patient complains to provider of: Insect sting Onset: Other - Thursday Onset/Duration: Gradual Quality of pain: Achy Severity: Moderate Pain Level: 2 Skin Character: Other - Insect bite denies itching or pain Quality of rash: No: Itchy, Painful Identify cause: No Exacerbated by: Denies Relieved by: Denies Similar symptoms previously: Yes Recently seen / treated by doctor: No - Related Data Allergies/Adverse Reactions: No Known Allergies Allergy (Verified 01/12/17 19:37) Past Medical History - General Information source: Patient - Social History Smoking Status: Never Smoker Cigarette use (# per day): No Chew tobacco use (# tins/day): No Smoking Education Provided: No Frequency of alcohol use: None Drug Abuse: None Occupation: none 7 weeks Lives with: Spouse/Significant other - Review one daughter Family History: Arthritis, CAD, CVA, Hyperlipidemia, Hypertension, Malignancy, Thyroid Disfunction - Past Medical History Cardiac Medical History: Reports: Hx Heart Murmur - MITRAL VALVE PROLAPSA Pulmonary Medical History: Reports: Hx Asthma, Hx Bronchitis EENT Medical History: Reports: None Neurological Medical History: Reports: Hx Migraine Endocrine Medical History: Reports: Hx Hypothyroidism - DURING 12/05 Renal/ Medical History: Reports: None Malignancy Medical History: Reports: Hx Cervical Cancer GI Medical History: Reports: Hx Gastroesophageal Reflux Disease - DURING Musculoskeltal Medical History: Reports Hx Musculoskeletal Trauma - Anterior cruciate ligament injury Skin Medical History: Reports None Psychiatric Medical History: Reports: Hx Anxiety, Hx Depression, Hx Post Traumatic Stress Disorder, Other - SAD, MONIKA, panics Traumatic Medical History: Reports: None Infectious Medical History: Reports: None Past Surgical History: Reports: Hx Appendectomy, Hx Section, Hx Gynecologic Surgery - CONE biopsy, Hx Oral Surgery - Immunizations Immunizations up to date: Yes Hx Diphtheria, Pertussis, Tetanus Vaccination: No Review of Systems - Review of Systems Constitutional: No symptoms reported EENT: No symptoms reported Cardiovascular: No symptoms reported Respiratory: No symptoms reported Gastrointestinal: No symptoms reported Genitourinary: No symptoms reported Female Genitourinary: No symptoms reported Musculoskeletal: Other - Body aches, being tested for arthritis Skin: Other - Insect bites to bilateral arms and neck with local reaction Hematologic/Lymphatic: No symptoms reported Neurological/Psychological: No symptoms reported -: Yes All other systems reviewed and negative Physical Exam - Vital signs Vitals: Temp Pulse Resp BP Pulse Ox 98.7 F 90 13 115/74 97 02/01/17 10:48 02/01/17 10:48 02/01/17 10:48 02/01/17 10:48 02/01/17 10:48 Interpretation: Normal - General General appearance: Appears well, Alert - HEENT Head: Normocephalic, Atraumatic Eyes: Normal Pupils: PERRL - Respiratory Respiratory status: No respiratory distress Chest status: Nontender Breath sounds: Normal Chest palpation: Normal - Cardiovascular Rhythm: Regular Heart sounds: Normal auscultation Murmur: No - Abdominal Inspection: Normal Distension: No distension Bowel sounds: Normal Tenderness: Nontender Organomegaly: No organomegaly - Back Back: Normal, Nontender - Extremities General upper extremity: Normal inspection, Nontender, Normal color, Normal ROM , Normal temperature General lower extremity: Normal inspection, Nontender, Normal color, Normal ROM , Normal temperature, Normal weight bearing. No: Xavi's sign - Neurological Neuro grossly intact: Yes Cognition: Normal Orientation: AAOx4 [place] Coma Scale Eye Opening: Spontaneous [place] Coma Scale Verbal: Oriented [place] Coma Scale Motor: Obeys Commands [place] Coma Scale Total: 15 Speech: Normal Motor strength normal: LUE, RUE, LLE, RLE Sensory: Normal - Psychological Associated symptoms: Normal affect, Normal mood - Skin Skin Temperature: Warm Skin Moisture: Dry Skin Color: Normal Location of irregularity: Neck - Insect bites, Extremities - Insect bites Course - Vital Signs Vital signs: Temp Pulse Resp BP Pulse Ox 98.7 F 90 13 115/74 97 02/01/17 10:48 02/01/17 10:48 02/01/17 10:48 02/01/17 10:48 02/01/17 10:48 Discharge - Discharge Clinical Impression: bodyaches Insect bites Qualifiers: Encounter type: initial encounter Qualified Code(s): W57.XXXA - Bitten or stung by nonvenomous insect and other nonvenomous arthropods, initial encounter Condition: Stable Disposition: HOME, SELF-CARE Instructions: Family Physicians / Practices Additional Instructions: Insect Bites You have been bitten by an insect. These bites can cause two types of swelling: an initial swelling due to insect saliva or injected poison, and a late reaction due to your body's allergic reaction. This initial local reaction may be uncomfortable but is not dangerous. Often there's an itchy "hive" at the bite location. This is treated with antihistamines, cold compresses, and resting the affected body part. The later reaction often develops about the second day. The entire area becomes very swollen, red, itchy, and tender. This is an allergic reaction. Your body is attacking the leftover insect saliva or venom. This type of allergy is unpleasant, but not dangerous. We treat this swelling with cortisone -type medicine. Sometimes we use antibiotics if we're worried about infection. Antihistamines help with the itch. If you develop a fever, chills, a red streak, or swollen glands in the area of the bite, infection may be starting. Return at once. ACID-SUPPRESSING MEDICATION: You have a prescription for medicine which reduces the stomach's secretion of acid. Examples include Zantac, Tagament, and Pepcid. These drugs are often used to allow healing of ulcers or esophagitis. They may be needed to prevent recurrence of ulcers in some patients, or to prevent damage from acid reflux in the esophagus. Take all medication as prescribed, even after the pain is gone. Regular antacids may be added as needed if you have symptoms while taking this medicine. These medications sometimes are prescribed for allergic reactions because they have anti-histaminic effects and relieve the rash and itching of the reaction. There are usually no side effects from this medication. But, in rare cases and particularly in the elderly, serious problems can occur. Contact your doctor if there is fever, rash, hallucinations, confusion, or unusual bruising. Contact your doctor at once if you develop lightheadedness, black or bloody stool, or bloody vomitus. USE OF DIPHENHYDRAMINE: The use of diphenhydramine (Benadryl) has been recommended to control allergic symptoms. The 25 mg strength is available over- the-counter, as well as the elixir. This antihistamine is used for many symptoms. It's useful for itching, watering eyes and nose, allergic swelling, hives, and insect stings. The medication can be repeated four times daily. Age Elixir (12.5 mg/tsp) 25 mg pill 2-3 yr 1/2 tsp 4-8 yr 1 tsp 9-14 yr 2 tsp one tab adult 1-2 tabs Antihistamines may cause drowsiness, especially with the first dose. Do not operate machinery or drive while under the effects of the medication. Do not combine the medication with alcohol, or with any other medication without talking to your doctor. FOLLOW-UP CARE: If you have been referred to a physician for follow-up care, call the physician s office for an appointment as you were instructed or within the next two days. If you experience worsening or a significant change in your symptoms, notify the physician immediately or return to the Emergency Department at any time for re-evaluation. Referrals: LA ESTEVEZ MD [Primary Care Provider] - Follow up as needed
== END 2017-02-01 11:49 | disposition home or self-care (01) ==
LOC: ER 10:47
DX: S40.862A Insect bite (nonvenomous) of left upper arm, initial encounter (principal); S40.861A Insect bite (nonvenomous) of right upper arm, initial encounter; S10.96XA Insect bite of unspecified part of neck, initial encounter; W57.XXXA Bitten or stung by nonvenomous insect and other nonvenomous arthropods, initial encounter; R52 Pain, unspecified; J45.909 Unspecified asthma, uncomplicated; Z85.41 Personal history of malignant neoplasm of cervix uteri
CPT/HCPCS: 99282; J3490

== ENCOUNTER 2017-03-19 12:05 | Emergency (ER) | payer MEDICAID ==
[2017-03-19] MEDS ORDERED: ONDANSETRON 4 MG TAB.RAPDIS PO ONE (13:00)
--- NOTE | 2017-03-19 13:02 | ER Document Report ---
ED Medical Screen (RME) - General Chief Complaint: Abdominal Pain Stated Complaint: ABDOMINAL PAIN Time Seen by Provider: 03/19/17 13:00 TRAVEL OUTSIDE OF THE [place] IN LAST 30 DAYS: No - HPI Notes: 03/19/17 13:01 Upper quadrant pain after eating a hibachi nausea vomiting - Related Data Allergies/Adverse Reactions: promethazine [From Phenergan] Adverse Reaction (Verified 03/19/17 13:00) Past Medical History - Past Medical History Cardiac Medical History: Reports: Hx Heart Murmur - MITRAL VALVE PROLAPSA Denies: Hx Hypertension, Hx Pulmonary Embolism Pulmonary Medical History: Reports: Hx Asthma, Hx Bronchitis Denies: Hx Sleep Apnea, Hx Tuberculosis Neurological Medical History: Reports: Hx Migraine Endocrine Medical History: Reports: Hx Hypothyroidism - DURING 12/05. Denies: Hx Hyperthyroidism Renal/ Medical History: Denies: Hx Kidney Stones, Hx Ovarian Cysts, Hx Peritoneal Dialysis, Hx Pelvic Inflammatory Disease Malignancy Medical History: Reports: Hx Cervical Cancer. Denies: Hx Breast Cancer, Hx Ovarian Cancer GI Medical History: Reports: Hx Gastroesophageal Reflux Disease - DURING . Denies: Hx Hiatal Hernia, Hx Ulcer Musculoskeltal Medical History: Reports Hx Musculoskeletal Trauma - Anterior cruciate ligament injury Psychiatric Medical History: Reports: Hx Anxiety - MONIKA, panic disorder social anxiety disorder, Hx Depression, Hx Post Traumatic Stress Disorder Denies: Hx Bipolar Disorder, Hx Schizophrenia Infectious Medical History: Denies: Hx HIV Past Surgical History: Reports: Hx Appendectomy, Hx Section, Hx Gynecologic Surgery - CONE biopsy, Hx Oral Surgery - Immunizations Immunizations up to date: Yes Hx Diphtheria, Pertussis, Tetanus Vaccination: No Review of Systems - Review of Systems Gastrointestinal: Abdominal pain Physical Exam - Vital signs Vitals: Temp Pulse Resp BP Pulse Ox 98.2 F 96 18 113/74 97 03/19/17 12:15 03/19/17 12:15 03/19/17 12:15 03/19/17 12:15 03/19/17 12:15 - Abdominal Inspection: Normal Distension: No distension Tenderness: Nontender, Lazcano's sign, Guarding, Rebound Course - Vital Signs Vital signs: Temp Pulse Resp BP Pulse Ox 98.2 F 96 18 113/74 97 03/19/17 12:15 03/19/17 12:15 03/19/17 12:15 03/19/17 12:15 03/19/17 12:15
[2017-03-19 13:33] LABS: ABSOLUTE EOSINOPHILS # (AUTO) 0.1 10^3/uL (0.0-0.6); ABSOLUTE LYMPHOCYTES (AUTO) 1.3 10^3/uL (0.5-4.7); ABSOLUTE MONOCYTES (AUTO) 0.3 10^3/uL (0.1-1.4); ABSOLUTE NEUT (AUTO) 5.9 10^3/uL (1.7-8.2); BASOPHILS % (AUTO) 0.3 % (0-2); LYMPHOCYTES % (AUTO) 17.2 % (13-45); MEAN CORPUSCULAR HEMOGLOBIN 29.5 pg (27.0-33.4); MEAN CORPUSCULAR HGB CONC 33.2 g/dL (32.0-36.0); MEAN CORPUSCULAR VOLUME 89 fl (80-97); MONOCYTES % (AUTO) 3.8 % (3-13); RED BLOOD COUNT 4.73 10^6/uL (3.72-5.28); RED CELL DISTRIBUTION WIDTH 14.4 % (11.5-14.0); SEGMENTED NEUTROPHILS % (AUTO) 77.7 % (42-78); WHITE BLOOD COUNT 7.6 10^3/uL (4.0-10.5)
[2017-03-19 13:58] LABS: ALANINE AMINOTRANSFERASE 30 U/L (9-52); ALBUMIN 4.6 g/dL (3.5-5.0); ALKALINE PHOSPHATASE 64 U/L (38-126); ANION GAP 13 (5-19); ASPARTATE AMINO TRANSFERASE 28 U/L (14-36); BILIRUBIN,DIRECT 0.2 mg/dL (0.0-0.4); BILIRUBIN,TOTAL 1.5 mg/dL (0.2-1.3); BLOOD UREA NITROGEN 12 mg/dL (7-20); CALCIUM 9.5 mg/dL (8.4-10.2); CARBON DIOXIDE 26 mmol/L (22-30); CHLORIDE 103 mmol/L (98-107); CREATININE RESULT 0.78 mg/dL (0.52-1.25); GLUCOSE 90 mg/dL (75-110); LIPASE 132.8 U/L (23-300); POTASSIUM 4.5 mmol/L (3.6-5.0); SODIUM 141.7 mmol/L (137-145); TOTAL PROTEIN 8.1 g/dL (6.3-8.2)
--- NOTE | 2017-03-19 14:02 | RADIOLOGY REPORT (SQ) ---
EXAM DESCRIPTION: U/S ABDOMEN LTD W/DOPPLER COMPLETED DATE/TIME: 03/19/2017 1:47 pm REASON FOR STUDY: YUNG pavon COMPARISON: 03/10/2016 TECHNIQUE: Dynamic and static grayscale images acquired of the abdomen and recorded on PACS. Additio nal selected color Doppler and spectral images recorded. LIMITATIONS: Midline bowel gas FINDINGS: PANCREAS: Midline pancreas unremarkable LIVER: No masses. Echotexture normal. LIVER VASCULATURE: Normal directional flow of the main portal vein and hepatic veins. GALLBLADDER: No stones. Normal wall thickness. No pericholecystic fluid. ULTRASOUND-DETECTED HANEY'S SIGN: Negative. INTRAHEPATIC DUCTS AND COMMON DUCT: CBD and intrahepatic ducts normal caliber. No filling defects. D istal most common duct not well seen due to duodenum gas INFERIOR VENA CAVA: Normal flow. AORTA: No aneurysm. RIGHT KIDNEY: Normal size. Normal echogenicity. No solid or suspicious masses. No hydronephrosis. No calcifications. PERITONEAL AND RIGHT PLEURAL SPACE: No ascites or effusions. OTHER: No other significant findings. IMPRESSION: ESSENTIALLY NORMAL RIGHT UPPER QUADRANT ULTRASOUND. TECHNICAL DOCUMENTATION: JOB ID: [id number] [employer]- All Rights Reserved
[2017-03-19] MEDS ORDERED: FENTANYL CITRATE INJ/PF 100 MCG/2 ML AMPUL IV ONE (14:04)
[2017-03-19] MEDS ORDERED: ONDANSETRON HCL INJ/PF 4 MG/2 ML SDV IV ONE (14:04)
[2017-03-19] MEDS ORDERED: MAG HYDROX/AL HYDROX/SIMETH SUSP 30 ML UDCUP PO PRN (14:06)
[2017-03-19 14:13] LABS: APPEARANCE,URINE CLEAR; BILIRUBIN,URINE NEGATIVE (NEGATIVE); GLUCOSE, URINE NEGATIVE (NEGATIVE); KETONES,URINE NEGATIVE (NEGATIVE); LEUKOCYTE ESTERASE,URINE NEGATIVE (NEGATIVE); NITRITE,URINE NEGATIVE (NEGATIVE); PROTEIN,URINE NEGATIVE (NEGATIVE); URINE SPECIFIC GRAVITY 1.021; UROBILINOGEN,URINE NEGATIVE mg/dL (<2.0)
--- NOTE | 2017-03-19 14:25 | ER Document Report ---
ED General - General Chief Complaint: Abdominal Pain Stated Complaint: ABDOMINAL PAIN Time Seen by Provider: 03/19/17 13:00 Notes: 32-year-old female presents with upper abdominal pain bilateral constant radiating to the right flank/back present since this morning associated with nausea and vomiting 1. Associated with anorexia. Associated with diarrhea 2. She had hypoxia last night. Her did not and he is not sick. Denies fever chills. Denies urinary symptoms. She has a 3-month-old daughter but is not breast-feeding. No history of gallbladder disease. No foreign travel. Recent doxycycline for cystic acne. TRAVEL OUTSIDE OF THE [place] IN LAST 30 DAYS: No - Related Data Allergies/Adverse Reactions: promethazine [From Phenergan] Adverse Reaction (Verified 03/19/17 13:00) Past Medical History - General Information source: Patient - Social History Smoking Status: Current Every Day Smoker Chew tobacco use (# tins/day): No Frequency of alcohol use: Heavy Drug Abuse: None Family History: Arthritis, CAD, CVA, Hyperlipidemia, Hypertension, Malignancy, Thyroid Disfunction Patient has suicidal ideation: No Patient has homicidal ideation: No - Past Medical History Cardiac Medical History: Reports: Hx Heart Murmur - MITRAL VALVE PROLAPSA Denies: Hx Hypertension, Hx Pulmonary Embolism Pulmonary Medical History: Reports: Hx Asthma, Hx Bronchitis Denies: Hx Sleep Apnea, Hx Tuberculosis Neurological Medical History: Reports: Hx Migraine Endocrine Medical History: Reports: Hx Hypothyroidism - DURING 12/05. Denies: Hx Hyperthyroidism Renal/ Medical History: Denies: Hx Kidney Stones, Hx Ovarian Cysts, Hx Peritoneal Dialysis, Hx Pelvic Inflammatory Disease Malignancy Medical History: Reports: Hx Cervical Cancer. Denies: Hx Breast Cancer, Hx Ovarian Cancer GI Medical History: Reports: Hx Gastroesophageal Reflux Disease - DURING . Denies: Hx Hiatal Hernia, Hx Ulcer Musculoskeltal Medical History: Reports Hx Musculoskeletal Trauma - Anterior cruciate ligament injury Psychiatric Medical History: Reports: Hx Anxiety - MONIKA, panic disorder social anxiety disorder, Hx Depression, Hx Post Traumatic Stress Disorder Denies: Hx Bipolar Disorder, Hx Schizophrenia Infectious Medical History: Denies: Hx HIV Past Surgical History: Reports: Hx Appendectomy, Hx Section, Hx Gynecologic Surgery - CONE biopsy, Hx Oral Surgery - Immunizations Immunizations up to date: Yes Hx Diphtheria, Pertussis, Tetanus Vaccination: No Review of Systems - Review of Systems Notes: REVIEW OF SYSTEMS GEN: Denies fever, chills, weight loss ENT: Denies sore throat, nasal discharge, ear pain EYES: Denies blurry vision, eye pain, discharge CV: Denies chest pain, palpitations, edema RESP: Denies cough, shortness of breath, wheezing GI: Abdominal pain vomiting diarrhea MSK: Denies joint pain/swelling, edema, SKIN: Denies rash, skin lesions LYMPH: Denies swollen glands/lymph nodes NEURO: Denies headache, focal weakness or numbness, dizziness PSYCH: Denies depression, suicidal or homicidal ideation PHYSICAL EXAMINATION General: No acute distress, well-nourished Head: Atraumatic, normocephalic ENT: Mouth normal, oropharynx moist, no exudates or tonsillar enlargement Eyes: Conjunctiva normal, pupils equal, lids normal Neck: No JVD, supple, no guarding CVS: Normal rate, regular rhythm, no murmurs Resp: No resp distress, equal and normal breath sounds bilaterally GI: Nondistended, soft, right and left upper quadrant tenderness to palpation, no rebound or guarding Ext: No deformities, no edema, normal range of motion in upper and lower ext Back: No CVA or midline TTP Skin: No rash, warm Lymphatic: No lymphadeopathy noted Neuro: Awake, alert. Face symmetric. GCS 15. Physical Exam - Vital signs Vitals: Temp Pulse Resp BP Pulse Ox 98.2 F 96 18 113/74 97 03/19/17 12:15 03/19/17 12:15 03/19/17 12:15 03/19/17 12:15 03/19/17 12:15 Course - Re-evaluation Re-evalutation: 03/19/17 14:25 32-year-old female presented with upper abdominal pain vomiting and diarrhea. Her abdomen is mildly tender, however this is diffuse in nature in the upper abdomen. Her vital signs are normal. Differential includes gastritis pancreatitis. Gallstones with likely cholecystitis or pancreatitis given her risk factors. She was evaluated in triage labs and ultrasound were ordered. Ultrasound is read as normal. Labs are normal. She was given Zofran and fentanyl, IV fluids. 03/19/17 14:40 Number nauseous and pain is improved with fentanyl. Workup is negative including labs and ultrasound. She has no CVA tenderness. Her urine has not been sent by do not think she has polynephritis based on her symptoms including the diarrhea. Ibuprofen Tylenol, good hydration. Follow-up with primary care. I have discussed with the patient there likely diagnosis, aftercare plan, follow -up plans and my usual and customary return precautions. They verbalized understanding of this.. - Vital Signs Vital signs: Temp Pulse Resp BP Pulse Ox 98.2 F 96 18 113/74 97 03/19/17 12:15 03/19/17 12:15 03/19/17 12:15 03/19/17 12:15 03/19/17 12:15 - Laboratory Result Diagrams: 03/19/17 13:17 03/19/17 13:17 Laboratory results interpreted by me: 03/19/17 03/19/17 13:17 13:17 RDW 14.4 H Total Bilirubin 1.5 H - Diagnostic Test Radiology reviewed: Image reviewed, Reports reviewed Discharge - Discharge Clinical Impression: Abdominal pain Qualifiers: Abdominal location: upper abdomen, unspecified Qualified Code(s): R10.10 - Upper abdominal pain, unspecified Condition: Good Disposition: HOME, SELF-CARE Instructions: Abdominal Pain ([facility]) Additional Instructions: Your ultrasound and lab testing was normal including you had no gallstones. Please keep well hydrated take Tylenol for pain and Maalox [id number] for the abdominal pain as well. Please follow-up with the primary care doctor if your pain is not resolved. He get worse please come back to the emergency room.
[2017-03-19 16:01] VITALS: BP 102/63
== END 2017-03-19 16:02 | disposition home or self-care (01) ==
LOC: ER 12:05
DX: R10.10 Upper abdominal pain, unspecified (principal); R11.2 Nausea with vomiting, unspecified; R63.0 Anorexia; R19.7 Diarrhea, unspecified; R10.811 Right upper quadrant abdominal tenderness; R10.812 Left upper quadrant abdominal tenderness; F17.200 Nicotine dependence, unspecified, uncomplicated; J45.909 Unspecified asthma, uncomplicated; Z85.41 Personal history of malignant neoplasm of cervix uteri; Z90.49 Acquired absence of other specified parts of digestive tract
CPT/HCPCS: 99284; 96374; 96375; 36415; 84702; 83690; 85025; 80053; 81001; 76705; 93976; S0119; J3010; J3490; J2405

== ENCOUNTER 2017-10-09 22:37 | Emergency (ER) | payer MEDICAID ==
[2017-10-09] MEDS ORDERED: ONDANSETRON HCL INJ/PF 4 MG/2 ML SDV IV ONE (23:29)
[2017-10-09] MEDS ORDERED: NORMAL SALINE 1000 ML 1,000 ML IV ONE (23:29)
--- NOTE | 2017-10-10 00:08 | ER Document Report ---
ED General - General Chief Complaint: Nausea/Vomiting/Diarrhea Stated Complaint: VOMITING Time Seen by Provider: 10/09/17 23:28 Notes: Patient is a 32-year-old female without past medical history who presents with 4 -5 hours of persistent nausea, vomiting and diarrhea. Patient states that her symptoms started abruptly and have worsened since that time. She states that she has been completely unable to tolerate any fluids since that time. No known sick contacts. She denies any history of similar symptoms in the past. Nothing improves or worsens her symptoms. She has been unable to see her primary doctor regarding today's concerns. She did try oral Zofran at home which she states actually made her vomit even more severely due to the taste of the dissolving tablet. She denies any fever, localized abdominal pain, chest pain, shortness of breath, cough or sputum production. No history of abdominal surgeries. TRAVEL OUTSIDE OF THE [place] IN LAST 30 DAYS: No - Related Data Allergies/Adverse Reactions: promethazine [From Phenergan] Adverse Reaction (Verified 10/09/17 22:40) Past Medical History - General Information source: Patient - Social History Smoking Status: Never Smoker Frequency of alcohol use: None Drug Abuse: None Lives with: Spouse/Significant other Family History: Arthritis, CAD, CVA, Hyperlipidemia, Hypertension, Malignancy, Thyroid Disfunction - Past Medical History Cardiac Medical History: Reports: Hx Heart Murmur - MITRAL VALVE PROLAPSA Denies: Hx Hypertension, Hx Pulmonary Embolism Pulmonary Medical History: Reports: Hx Asthma, Hx Bronchitis Denies: Hx Sleep Apnea, Hx Tuberculosis Neurological Medical History: Reports: Hx Migraine Endocrine Medical History: Reports: Hx Hypothyroidism - DURING 12/05. Denies: Hx Hyperthyroidism Renal/ Medical History: Denies: Hx Kidney Stones, Hx Ovarian Cysts, Hx Peritoneal Dialysis, Hx Pelvic Inflammatory Disease Malignancy Medical History: Reports: Hx Cervical Cancer. Denies: Hx Breast Cancer, Hx Ovarian Cancer GI Medical History: Reports: Hx Gastroesophageal Reflux Disease - DURING . Denies: Hx Hiatal Hernia, Hx Ulcer Musculoskeltal Medical History: Reports Hx Musculoskeletal Trauma - Anterior cruciate ligament injury Psychiatric Medical History: Reports: Hx Anxiety - MONIKA, panic disorder social anxiety disorder, Hx Depression, Hx Post Traumatic Stress Disorder Denies: Hx Bipolar Disorder, Hx Schizophrenia Infectious Medical History: Denies: Hx HIV Past Surgical History: Reports: Hx Appendectomy, Hx Section, Hx Gynecologic Surgery - CONE biopsy, Hx Oral Surgery - Immunizations Immunizations up to date: Yes Hx Diphtheria, Pertussis, Tetanus Vaccination: No Review of Systems - Review of Systems Notes: Constitutional: Negative for fever. HENT: Negative for sore throat. Eyes: Negative for visual changes. Cardiovascular: Negative for chest pain. Respiratory: Negative for shortness of breath. Gastrointestinal: Positive for abdominal cramping, vomiting and diarrhea Genitourinary: Negative for dysuria. Musculoskeletal: Negative for back pain. Skin: Negative for rash. Neurological: Negative for headaches, weakness or numbness. 10 point ROS negative except as marked above and in HPI. Physical Exam - Vital signs Vitals: Temp Pulse Resp BP Pulse Ox 97.5 F 90 20 92/45 L 98 10/09/17 23:21 10/09/17 23:21 10/09/17 23:21 10/09/17 23:21 10/09/17 23:21 Interpretation: Hypotensive Notes: PHYSICAL EXAMINATION: GENERAL: Patient appears uncomfortable, diaphoretic and pale HEAD: Atraumatic, normocephalic. EYES: Pupils equal round and reactive to light, extraocular movements intact, sclera anicteric, conjunctiva are normal. ENT: nares patent, oropharynx clear without exudates. Dry mucous membranes. NECK: Normal range of motion, supple without lymphadenopathy LUNGS: Breath sounds clear to auscultation bilaterally and equal. No wheezes rales or rhonchi. HEART: Regular rate and rhythm without murmurs ABDOMEN: Soft, nontender, normoactive bowel sounds. No guarding, no rebound. No masses appreciated. EXTREMITIES: Normal range of motion, no pitting or edema. No cyanosis. NEUROLOGICAL: No focal neurological deficits. Moves all extremities spontaneously and on command. PSYCH: Normal mood, normal affect. SKIN: Warm, Dry, normal turgor, no rashes or lesions noted. Course - Re-evaluation Re-evalutation: 10/10/17 00:08 Presentation of an overall well-appearing patient in no acute distress with complaints of nausea, vomiting, diarrhea. This is consistent with likely viral gastroenteritis. Patient has no abdominal tenderness on exam and specifically no tenderness in the RLQ, LLQ, RUQ. Overall well hydrated on exam. Able to tolerate oral intake here in the emergency department. Low clinical suspicion for any acute life-threatening etiology based on exam and history including acute cholecystitis, SBO, appendicitis, nephrolithiasis, or pylonephritis. CMP without evidence of acute hepatitis or significant dehydration. At this time will discharge with return precautions and follow-up recommendations. Verbal discharge instructions given a the bedside and opportunity for questions given. Medication warnings reviewed. Patient is in agreement with this plan and has verbalized understanding of return precautions and the need for primary care follow-up in the next 24-72 hours. - Vital Signs Vital signs: Temp Pulse Resp BP Pulse Ox 97.5 F 90 20 92/45 L 98 10/09/17 23:21 10/09/17 23:21 10/09/17 23:21 10/09/17 23:21 10/09/17 23:21 - Laboratory Result Diagrams: 10/10/17 00:04 Laboratory results interpreted by me: 10/10/17 00:04 Glucose 158 H Calcium 10.5 H AST 74 H Total Protein 8.4 H Discharge - Discharge Clinical Impression: Vomiting and diarrhea, Dehydration Condition: Good Disposition: HOME, SELF-CARE Additional Instructions: Your symptoms are likely due to a viral illness and should resolve in the next several days. You can take [id number] loperamide also known as Imodium as needed for diarrhea per box instructions. Continue to stay hydrated with plenty of solution such as Gatorade or Pedialyte. You are being prescribed Zofran to take as needed for nausea and vomiting. Please return if you develop severe abdominal pain, pass out, become unable to tolerate any oral fluids for 12 more hours, or any other symptoms that are concerning to you. Referrals: LA ESTEVEZ MD [Primary Care Provider] - Follow up as needed
[2017-10-10] MEDS ORDERED: ONDANSETRON ODT 4 MG TAB (6 TAB/ER DISP) PO PRN (00:41)
[2017-10-10 00:52] LABS: ALANINE AMINOTRANSFERASE 45 U/L (9-52); ALKALINE PHOSPHATASE 63 U/L (38-126); ANION GAP 18 (5-19); ASPARTATE AMINO TRANSFERASE 74 U/L (14-36); BILIRUBIN,DIRECT 0.2 mg/dL (0.0-0.4); BILIRUBIN,TOTAL 0.5 mg/dL (0.2-1.3); BLOOD UREA NITROGEN 16 mg/dL (7-20); CALCIUM 10.5 mg/dL (8.4-10.2); CARBON DIOXIDE 22 mmol/L (22-30); CHLORIDE 103 mmol/L (98-107); GLUCOSE 158 mg/dL (75-110); POTASSIUM 4.5 mmol/L (3.6-5.0); SODIUM 142.6 mmol/L (137-145); TOTAL PROTEIN 8.4 g/dL (6.3-8.2)
[2017-10-10] MEDS ORDERED: METOCLOPRAMIDE HCL INJ/PF 10 MG/2 ML SDV IV ONE ×2 (01:15→01:20)
[2017-10-10 02:25] VITALS: BP 107/67
== END 2017-10-10 02:23 | disposition home or self-care (01) ==
LOC: ER 22:37
DX: R11.2 Nausea with vomiting, unspecified (principal); R19.7 Diarrhea, unspecified; E86.0 Dehydration; R10.9 Unspecified abdominal pain; J45.909 Unspecified asthma, uncomplicated; Z85.41 Personal history of malignant neoplasm of cervix uteri; Z90.49 Acquired absence of other specified parts of digestive tract
CPT/HCPCS: 99283; 96361; 96374; 96375; 36415; 80053; J2765; J2405; J7030